=== PATIENT | female | born 1960 | race Caucasian/White ===

== ENCOUNTER 2018-11-19 16:28 | Inpatient (IN) ==
[2018-11-19] MEDS ORDERED: NS 1,000 ML IV ONE ×3 (17:06→22:03)
[2018-11-19 17:28] LABS: BASO# 0.05 X1000 (0.0-0.2); BASO% 0.5 % (0.0-0.8); EOS# 0.06 X1000 (0.0-0.7); EOS% 0.5 % (0.0-10.0); HEMATOCRIT 30.5 % (37.0-47.0); HEMOGLOBIN 9.8 g/dL (12.0-16.0); IMM GRAN# 0.02 X1000 (0.0-0.04); IMM GRAN% 0.2 % (0.0-0.5); LYMPH# 1.89 X1000 (1.2-3.4); LYMPH% 17.3 % (20.5-51.1); MCH 29.3 PG (27-31); MCHC 32.1 g/dL (33-37); MCV 91.3 FL (81-99); MONO% 14.6 % (1.7-9.3); MPV 10.7 FL (7.4-10.4); NEUT# 7.31 X1000 (1.4-6.5); NEUT% 66.9 % (42.2-75.2); PLT 160 X1000 (130-400); RBC 3.34 XMIL (4.2-5.4); RDW 18.7 % (11.5-14.5); WBC 10.93 X1000 (4.8-10.8)
[2018-11-19 17:44] LABS: INR 1.41
[2018-11-19 17:45] LABS: PTT 49.9 Seconds (22.3-41.8)
[2018-11-19 17:59] LABS: BE 0.4 mmoll (-3.0-3.0); BLOOD TYPE ARTERIAL; HCO3-(ACT) 25.3 mmoll (20.0-26.0); METHB 0.8 % (0.0-1.5); O2(CT) 9.8 mL/dL (15.0-23.0); O2HB 95.7 % (95.0-99.0); PCO2(98.6) 36 mmHg (35-45); PO2(98.6) 78 mmHg (60-100); SAMPLE BLOOD; SAO2 98.9 % (95.0-100.0); THB 7.2 g/dL (11.5-17.4); pH(98.6) 7.44 (7.35-7.45)
[2018-11-19 18:02] LABS: ALBUMIN 2.6 g/dL (3.5-5.0); CALCIUM 10.9 mg/dL (8.8-10.2); CREATININE 4.2 mg/dL (0.5-0.9); POTASSIUM 3.6 mmol/L (3.5-5.1); TOTAL BILIRUBIN 1.6 mg/dL (0.20-1.00); TOTAL PROTEIN 7.4 g/dL (6.3-8.3)
[2018-11-19 18:03] LABS: ALLEN TEST YES; MODALITY ROOM AIR
[2018-11-19 18:14] LABS: URINE SOURCE CLEAN CATCH
--- NOTE | 2018-11-19 18:17 | ED EKG INTERP ---
This chart was entered by Judy Guzmán Scribe, acting as scribe for Galilea Gonsales MD. EKG Interpretation - EKG Time of EKG reading by physician:: 17:20 EKG Read and Signed by:: Galilea Gonsales EKG Interpretation (*Must complete 3 of following elements*): Abnormal (cannot rule out anteroir infarct-age undetermined) Rate: 99 Rhythm: nsr [place]: normal QRS: normal [place] Interval: normal ST Wave: normal Attestation - Physician/ BOBBY Attestation The physician spent face to face time with patient:: Yes Advanced Practice Provider documentation review:: Supervising physician onsite and consulted in the evaluation and care of this patient. The physician did have a face to face encounter with the patient. This chart was documented by the indicated scribe, (Judy Guzmán, Umair) and accurately reflects the services I performed and decisions made by me, Galilea Gonsales MD, as attested by the provider's signature.
--- NOTE | 2018-11-19 18:24 | PROVIDER DOCUMENTATION ---
This chart was entered by Carmina Tinajero Scribe, acting as scribe for Galilea Gonsales MD. HPI-General Adult - General Chief Complaint: Altered Mental Status Stated Complaint: FEMALE /DISORIENTED Time Seen by Provider: 11/19/18 16:52 Source: patient, EMS Unable to obtain history due to:: altered Allergies/Adverse Reactions: Patient Allergies Allergy/AdvReac Type Severity Reaction Status Date / Time No Known Allergies Allergy Verified 11/19/18 16:42 Home Medications: Home Medication List Medication Instructions Recorded Confirmed Last Taken Type Unobtainable [Home Meds 11/19/18 11/19/18 Unknown History Unobtainable] - History of Present Illness -Gen Adult Nature of Presenting Problems: 58 yof presents to the ed with disoriented and non compliant with medications for newly dx of dm. pt has A1C 8.6 and for 2 days has been confused with increased thirst and urination. pt has not had diarrhea. pt has family at bedside. had a brain ct done 1 week ago at [facility] with negative findings. Location of Pain/Injury: reports: none Pain Radiation: reports: no radiation Quality of Pain: reports: none Severity: reports: moderate (ams) Onset/Duration: reports: 2 days ago Timing: reports: still present Context/Activities at Onset: reports: light activity Modifying Factors: improves with: nothing Associated Symptoms: reports: genitourinary problems (increased urination), other (increased thirst). denies: back/neck pain, chest pain, diarrhea, dizziness, fever/chills, nausea, shortness of breath, syncope, vomiting, weakness Similar Symptoms Previously?: No Recently seen or treated by another doctor?: No - Diabetes Related Context Context: reports: high blood sugar Review of Systems - Adult - REVIEW OF SYSTEMS - ADULT ROS:: ROS per family Constitutional: denies: chills, fever Eyes: reports: no symptoms reported Ears, Nose, Mouth & Throat: reports: no symptoms reported Cardiovascular: denies: chest pain, palpitations Respiratory: denies: cough, shortness of breath, wheezing Gastrointestinal: denies: abdominal pain, diarrhea, nausea, vomiting Genitourinary: reports: see HPI, frequency, urgency Musculoskeletal: reports: no symptoms reported Integumentary: reports: no symptoms reported Neurological: reports: see HPI, other (confused). denies: dizziness/vertigo, headache/migraines, seizure, slurred speech Psychiatric: reports: no symptoms reported Endocrine: reports: increased thirst, polyuria Hematologic/Lymphatic: reports: no symptoms reported Allergic/Immunologic: reports: no symptoms reported All Other Systems: Reviewed and Negative Past History - Adult - PAST MEDICAL HISTORY-ADULT Review of Records: reports: Old Records Reviewed, Nursing Assessment Review, Medications Reviewed, Social history reviewed & non-contributory. Major Childhood Illnesses: reports: denies history Cardiovascular: reports: denies history Respiratory: reports: denies history Gastrointestinal: reports: denies history Obstetrical/Gynecological: reports: denies history Genitourinary: reports: denies history Musculoskeletal: reports: denies history Hand Dominance: Right Handed Neurological: reports: denies history Psychiatric: reports: denies history Endocrine/Immune: reports: Diabetes Diabetes Type: Type 2 Other Conditions: reports: other cancer (nonhodgkins lymphoma) - PRIOR SURGERIES/PROCEDURES Surgical/Procedure History: reports: breast - IMMUNIZATION STATUS Childhood Immunizations: See Nurse Assessment Flu Vaccine: See Nurse Assessment - FAMILY HISTORY Family History: reviewed, not pertinent - SOCIAL HISTORY Smoking: denies Substance Use: denies Living Situation: family Physical Exam-General - PHYSICAL EXAM-ADULT Exam Limited by: pt has ams - CONSTITUTIONAL General Appearance: alert, no apparent distress, obese - EYES Eyes: PERRL/EOMI, pink conjunctivae - HEAD, EARS, NOSE, MOUTH & THROAT HENMT: normal ENT inspection (dry oral mucous membranes) - NECK Neck: full range of motion, normal inspection - RESPIRATORY Respiratory: chest non-tender, lungs clear, normal breath sounds - CARDIOVASCULAR Cardiovascular: normal peripheral pulses, tachycardia (105) - GASTROINTESTINAL (ABDOMEN) Abdominal Exam: normal bowel sounds, non tender, soft - MUSCULOSKELETAL Back Exam: normal inspection, no CVA tenderness Extremity: normal range of motion, non-tender, normal inspection Peripheral Pulses: radial (R): 2+, radial (L): 2+, dorsalis-pedis (R): 2+, dorsalis-pedis (L): 2+ - SKIN Integumentary: normal color, normal turgor, warm/dry - NEUROLOGIC Neurologic: grossly normal, no motor/sensory deficits - PSYCHIATRIC Psych/Mental Status: other (alert oriented. able to give pieces of history, but mostly from her mother.) Progress - PLAN OF CARE/RESULTS Progress/Plan/Lab Results: Vital Signs - 8 hr 11/19/18 16:31 Temperature 98 F Pulse Rate 105 H Respiratory Rate 18 Blood Pressure 130/68 O2 Sat by Pulse Oximetry 98 Orders Category Date Time Status Cardiac Monitoring DIRECTED Care 11/19/18 16:52 Active Finger Stick Blood Sugar (ED) DIRECTED Care 11/19/18 16:52 Active Oxygen Therapy- ED Nursing DIRECTED Care 11/19/18 16:52 Active Saline Loc NOW Care 11/19/18 16:52 Active CHEST-PORTABLE [RAD] Stat Exams 11/19/18 16:52 Ordered ABG [RESP] Routine Lab 11/19/18 16:52 Ordered CBC WITH ELECTRONIC DIFF [HEME] Stat Lab 11/19/18 17:13 Received CK PROFILE [SP CHEM] Stat Lab 11/19/18 17:13 Received COMPREHENSIVE METABOLIC PANEL [CHEM] Stat Lab 11/19/18 17:13 Received LACTATE, PLASMA [CHEM] Stat Lab 11/19/18 16:52 Uncollected PROTIME WITH INR [COAG] Stat Lab 11/19/18 17:13 Received PTT [COAG] Stat Lab 11/19/18 17:13 Received TROPONIN T Stat Lab 11/19/18 17:13 Received URINALYSIS [URINALYSIS] Stat Lab 11/19/18 16:53 Uncollected 0.9% Sodium Chloride Inj [Ns] 1,000 ml Med 11/19/18 17:06 Active IV 999 mls/hr Altered Mental Status Stat Oth 11/19/18 16:52 Ordered EKG [EKG] Stat Ther 11/19/18 16:52 Ordered Result Diagrams: 11/19/18 17:13 11/19/18 17:13 - CONSULTS/PCP/HOSPITALIST Notification #1 *Consult/PCP/Hospitalist*: Dr. Tapia Time Discussed: 18:23 (Acute renal failure, diabetes) Consult Disposition: Admit Departure - Departure Date of Disposition Decision: 11/19/18 Time of Disposition Decision: 18:23 DIAGNOSIS: Acute renal failure, Diabetes Disposition: ADMITTED INPATIENT 09 Certified Medical Emergency: Emergent Condition: Stable Referrals and Follow-Ups: None,PCP [Primary Care Provider] - - Critical Care Note This patient required my direct & personal management of CC.: No Attestation - Physician/ BOBBY Attestation Patient care was provided by Advanced Practice Provider:: No The physician spent face to face time with patient:: Yes Advanced Practice Provider documentation review:: Supervising physician onsite and consulted in the evaluation and care of this patient. The physician did have a face to face encounter with the patient. This chart was documented by the indicated scribe, (Carmina Tinajero Scribe) and accurately reflects the services I performed and decisions made by me, Galilea Gonsales MD, as attested by the provider's signature.
[2018-11-19 18:33] LABS: BILIRUBIN URINE NEGATIVE (NEGATIVE); BLOOD URINE 1+ (NEGATIVE); CLARITY VERY CLOUDY (CLEAR); COLOR YELLOW; GLUCOSE URINE NEGATIVE (NEGATIVE); KETONE URINE TRACE mg/dL (NEGATIVE); LEUKOCYTES URINE 1+ (NEGATIVE); NITRITE URINE NEGATIVE (NEGATIVE); PROTEIN URINE TRACE mg/dL (NEGATIVE); SP GRAVITY URINE 1.015; UROBILINOGEN URINE NORMAL
[2018-11-19 18:34] LABS: URINE BACTERIA 1+ /HFP; URINE CAST WHITE CELL PRESENT /LPF; URINE EPITHELIAL CELLS <10 /HPF (<10); URINE RBC <10 /HPF (<10); URINE WBC 20-40 /HPF (<10); URINE YEAST NONE SEEN /HPF
[2018-11-19 18:35] LABS: URINE CRYSTAL NONE SEEN /HPF
--- NOTE | 2018-11-19 19:22 | Diag Imaging Result Doc PS360 ---
EXAM: CHEST-PORTABLE HISTORY: ams TECHNIQUE: Portable chest, single view COMPARISON: None. Findings: Poor inspiratory effort. No cardiomegaly. There is a small left pleural effusion with basilar atelectasis and/or infiltrate. There is a right sided portacatheter. No pneumothorax. IMPRESSION: Small left pleural effusion with basilar atelectasis and/or an infiltrate. Electronically signed by Tony Mederos 11/19/2018 7:19 PM
[2018-11-19 19:39] LABS: UR CREAT RANDOM 217.3 mg/dL (11-20)
[2018-11-19] MEDS ORDERED: ZOFRAN IV PRN (22:03)
[2018-11-19] MEDS ORDERED: TYLENOL PO PRN (22:03)
[2018-11-19] MEDS: SODIUM CHLORIDE 0.9% INJ SCH (23:00)
[2018-11-19] MEDS: PROTONIX IV SCH (23:00)
[2018-11-19] MEDS: MAXIPIME 1 GM in NS 50 ML IV SCH (23:05)
[2018-11-20 07:16] LABS: HEMOGLOBIN A1C 5.5 % (4.8-6.0)
[2018-11-20 07:22] LABS: BASO# 0.05 X1000 (0.0-0.2); BASO% 0.4 % (0.0-0.8); EOS% 0.9 % (0.0-10.0); HEMATOCRIT 29.8 % (37.0-47.0); HEMOGLOBIN 9.3 g/dL (12.0-16.0); IMM GRAN# 0.02 X1000 (0.0-0.04); IMM GRAN% 0.2 % (0.0-0.5); LYMPH# 3.03 X1000 (1.2-3.4); LYMPH% 27.2 % (20.5-51.1); MCH 28.8 PG (27-31); MCHC 31.2 g/dL (33-37); MCV 92.3 FL (81-99); MONO# 1.95 X1000 (0.11-0.59); MONO% 17.5 % (1.7-9.3); MPV 11.2 FL (7.4-10.4); NEUT# 5.98 X1000 (1.4-6.5); NEUT% 53.8 % (42.2-75.2); PLT 144 X1000 (130-400); RBC 3.23 XMIL (4.2-5.4); RDW 18.7 % (11.5-14.5); WBC 11.13 X1000 (4.8-10.8)
--- NOTE | 2018-11-20 07:31 | HISTORY AND PHYSICAL ---
HISTORY OF PRESENT ILLNESS: The patient is a very pleasant patient who came in for altered mentation. It is very difficult to get much information on her. She is very confused and disoriented. She is 58. I get a sense she gets her care mostly from the [facility], and she really cannot give me much detailed information. She reports being on Lasix, but she has no idea how much or how often. She has been having increased confusion. She is not very compliant with her diabetic medicines. This is per the record. Her A1c is 8.6. Now, apparently the diabetes is a relatively new diagnosis reportedly. Her sugars really are not that badly controlled. She has got renal failure and we have no baseline to compare to, nothing of the sort. So, in any case, she was admitted for further treatment. Workup in the ER was mostly consistent with acute renal failure. She denies nausea and vomiting. She denies diarrhea. She denies abdominal pain. She does state she has had some bleeding from her hemorrhoids, which has been protracted, but unclear otherwise etiology. We do not have a list of any of her medications. Nothing has been confirmed. The patient admitted for acute renal failure essentially. PAST MEDICAL HISTORY: 1. Type 2 diabetes, sounds like she is not insulin dependent. 2. Reported CHF, but no CAD. 3. Chronic renal failure, but unknown type. PAST SURGICAL HISTORY: She denies. FAMILY HISTORY: Denies any renal or cardiac history. Mother is her main caregiver. SOCIAL HISTORY: No tobacco, no ethanol. ALLERGIES: No known drug allergies. REVIEW OF SYSTEMS: Otherwise, negative times a 10-point review of systems. PHYSICAL EXAMINATION: VITAL SIGNS: Blood pressure is currently on the normal side. Curiously, she has a port. GENERAL: A well-developed female in no acute distress. HEAD: Head exam was normocephalic, atraumatic. EYES: Pupils equal, round, reactive to light. Extraocular moves were intact. EARS, NOSE AND THROAT: She had moist mucous membranes. NECK: Supple. CARDIOVASCULAR: Regular rate and rhythm. No murmurs, gallops or rubs. PULMONARY: Bilateral breath sounds. Clear to auscultation. GASTROINTESTINAL: Soft, nontender, nondistended. Bowel sounds are positive. EXTREMITIES: No clubbing or cyanosis. LYMPHATIC: No peripheral edema. NEUROLOGIC: Cranial nerves 2-12 were nonfocal, but she is really not oriented to time or place. LABORATORY DATA: BUN and creatinine of 67 and 4.2. AST and ALT of 137 and 48. Hemoglobin and hematocrit 9 and 30, platelets 160,000. Urine showed 20 to 40 white blood cells. Creatinine of 217. PROBLEM LIST: This is a 58-year-old female presenting with encephalopathy and acute kidney injury. 1. Acute kidney injury, likely related to dehydration. No medication or patient derived issue. We will check urine electrolytes. Continue IV fluids and follow. Be careful, with a volume status she reports a history of heart failure, but at this point is really nothing there. She has gotten 2 L and will continue fluids for the time being. 2. Encephalopathy, which is likely multifactorial. She has a nonfocal exam. Reportedly, her recent CT scan which was negative, but we will repeat that just to make sure that nothing has progressed, although I think this is all related to azotemia amongst other things. 3. Left lower lobe pneumonia. We will continue empiric antibiotics. She also may have a UTI, so we will treat that. I am going to give her cefepime since cannot tell if she has been recently in the hospital, but at least she has been exposed to the hospital. 4. Diabetes. We will monitor her blood sugars continue sliding scale, check an A1c and follow. DISPOSITION: Pending her clinical status. At this point, clinically she seems dry. I am not sure what her cardiac function is. We are going to try to get old records and follow closely. I will try to get an echocardiogram and we will follow closely. This is a service admission. cc: Juan Diego Tapia MD
[2018-11-20 07:57] LABS: ALBUMIN 2.3 g/dL (3.5-5.0); CALCIUM 10.7 mg/dL (8.8-10.2); CREATININE 3.4 mg/dL (0.5-0.9); POTASSIUM 3.7 mmol/L (3.5-5.1); TOTAL BILIRUBIN 1.5 mg/dL (0.20-1.00); TOTAL PROTEIN 7.1 g/dL (6.3-8.3)
--- NOTE | 2018-11-20 08:04 | EKG Report ---
Test Performed on : 11/19/2018 5:19:16 PM Test Reason : ams Blood Pressure : / mmHG Vent. Rate : 099 BPM Atrial Rate : 099 BPM P-R Int : 166 ms QRS Dur : 102 ms QT Int : 352 ms P-R-T Axes : 040 002 027 degrees QTc Int : 451 ms Normal sinus rhythm. Cannot rule out Anterior infarct , age undetermined Abnormal ECG No previous ECGs available Unconfirmed Result
--- NOTE | 2018-11-20 08:22 | Diag Imaging Result Doc PS360 ---
EXAM: US ABDOMEN-COMPLETE HISTORY: primo/hepatic injury TECHNIQUE: Abdominal ultrasound COMPARISON: None. FINDINGS: Normal inferior vena cava. No abdominal aortic aneurysm. Normal pancreatic head. The majority of the body and tail are obscured. There is a small amount of fluid about the liver. The liver is enlarged measuring 25.8 cm in length. There is fatty infiltration of the liver. The gallbladder is not present. The common bile duct measures 7 mm. Normal right kidney. No hydronephrosis. The spleen measures 13.7 cm in length. Normal left kidney. No hydronephrosis. IMPRESSION: 1.Hepatomegaly with fatty infiltration 2.Mild splenomegaly 3.Cholecystectomy 4.Small amount of fluid about the liver Electronically signed by Tony Mederos 11/20/2018 8:20 AM
--- NOTE | 2018-11-20 08:48 | Diag Imaging Result Doc PS360 ---
EXAM: CT HEAD W/O CONTRAST HISTORY: encephalopathy TECHNIQUE: CT head without contrast. COMPARISON: None. FINDINGS: No parenchymal hemorrhage. No epidural or subdural hematoma. No subarachnoid hemorrhage. No mass identified on this noncontrasted exam. No hydrocephalus. No sinus opacification. IMPRESSION: No hemorrhage. Negative brain CT without contrast. This exam was performed using automated exposure control, adjustment of mA or kV according to patient size, and/or use of iterative reconstruction technique. Electronically signed by Tony Mederos 11/20/2018 8:46 AM
[2018-11-20] MEDS: MAXIPIME 1 GM in NS 50 ML IV SCH ×2 (09:15→22:55)
[2018-11-20] MEDS ORDERED: NS 1,000 ML IV SCH (18:45)
--- NOTE | 2018-11-20 19:47 | PROGRESS NOTE ---
DATE: 11/20/2018 SUBJECTIVE: She seems better today, like not as confused. She still maybe not completely understanding what is going on, but overall she seems improved. OBJECTIVE: Vital Signs: Blood pressure is 137/70, heart rate of 109, respiratory rate of 20, temperature 97.5. Cardiovascular: Regular rate and rhythm. Pulmonary: Bilateral breath sounds. Clear to auscultation. Gastrointestinal: Soft, nontender, nondistended. Bowel sounds are positive. Extremities: No clubbing or cyanosis. Lymphatic: No peripheral edema. Neurologic: Nonfocal. LABORATORY DATA: Her creatinine is down to 3.4. Her T bilirubin is 1.5. AST and ALT are really unchanged. PROBLEM LIST: 1. Acute kidney injury with an unclear etiology. Her family reports she has recently been started on Lasix, which she states for incontinence. Her family states, which I do not think that is consistent, but she has recently been placed on a diuretic. We need to get her updated medications. So, in any case, we will continue IV fluids. Her renal function is improved. I think we need to continue hydration. 2. Possible pneumonia. She is on antibiotics and pulmonary toilet. We will continue to follow closely. 3. Elevated liver enzymes likely related to steatohepatitis. We will continue to monitor closely. Unclear what the etiology is, but she is getting a workup for that at this point. 4. New onset diabetes. We will continue sliding scale and follow. Her blood sugars have been okay. She has recently been on metformin, but we have not been able to, obviously that is not a good choice for her now. Curiously, I mean, she has been diagnosed with diabetes, but her A1c is only 5.5, so I do not think I would continue metformin or any medications at this point. I think we will just follow her blood sugars and monitor her. DISPOSITION: Pending clinical status. We will continue to follow closely. cc: Juan Diego Tapia MD
[2018-11-20] MEDS: PROTONIX IV SCH (22:55)
[2018-11-20] MEDS: SODIUM CHLORIDE 0.9% INJ SCH (22:55)
[2018-11-20] MEDS: NS 1,000 ML IV SCH (22:56)
[2018-11-20] MEDS ORDERED: CALMOSEPTINE OINTMENT TOP PRN (23:08)
[2018-11-21 02:47] LABS: UR PROT RANDOM 44.4 mg/dL
[2018-11-21 07:13] LABS: BASO# 0.05 X1000 (0.0-0.2); BASO% 0.5 % (0.0-0.8); EOS# 0.25 X1000 (0.0-0.7); EOS% 2.3 % (0.0-10.0); HEMATOCRIT 27.7 % (37.0-47.0); HEMOGLOBIN 8.6 g/dL (12.0-16.0); IMM GRAN# 0.02 X1000 (0.0-0.04); IMM GRAN% 0.2 % (0.0-0.5); LYMPH# 2.83 X1000 (1.2-3.4); LYMPH% 25.7 % (20.5-51.1); MCH 28.6 PG (27-31); MONO# 2.28 X1000 (0.11-0.59); MONO% 20.7 % (1.7-9.3); MPV 10.8 FL (7.4-10.4); NEUT# 5.59 X1000 (1.4-6.5); NEUT% 50.6 % (42.2-75.2); PLT 149 X1000 (130-400); RBC 3.01 XMIL (4.2-5.4); RDW 18.4 % (11.5-14.5); WBC 11.02 X1000 (4.8-10.8)
[2018-11-21 07:40] LABS: ALBUMIN 2.4 g/dL (3.5-5.0); DIRECT BILIRUBIN 0.8 mg/dL (0.00-0.20); TOTAL BILIRUBIN 1.6 mg/dL (0.20-1.00); TOTAL PROTEIN 6.8 g/dL (6.3-8.3)
[2018-11-21 07:47] LABS: ALBUMIN 2.3 g/dL (3.5-5.0); CALCIUM 11.1 mg/dL (8.8-10.2); CREATININE 2.7 mg/dL (0.5-0.9); PHOSPHORUS 3.5 mg/dL (2.7-4.5); POTASSIUM 3.1 mmol/L (3.5-5.1)
[2018-11-21] MEDS: MAXIPIME 1 GM in NS 50 ML IV SCH ×2 (09:53→21:43)
[2018-11-21 10:25] LABS: BASO 1 % (0-1); EOS 1 % (1-10); LYMPHS 23 % (21-51); MONO 16 % (1-9); SEGS 59 % (42-75)
[2018-11-21 11:27] LABS: FERRITIN 683 ng/mL (13-150)
[2018-11-21] MEDS ORDERED: KLOR-CON PO ONE (11:53)
[2018-11-21 12:37] LABS: HEPATITIS PROFILE ACUTE SEE COMMENTS
[2018-11-21] MEDS ORDERED: HALDOL IV PRN (17:13)
--- NOTE | 2018-11-21 18:04 | PROGRESS NOTE ---
DATE: 11/21/2018 SUBJECTIVE: She is doing okay. Still confused per the nursing staff. OBJECTIVE: Vital signs: Blood pressure 148/67, heart rate of 98, respiratory rate 20, temperature 98.1 degrees, 100% on room air. Cardiovascular: Irregular rate and rhythm. Pulmonary: Bilateral breath sounds clear to auscultation. Gastrointestinal: Soft, nontender, nondistended. Bowel sounds are positive. LABORATORY DATA: White count 11, hemoglobin 8, hematocrit 27, platelets 149,000. Potassium 3.1, creatinine down to 2.7, calcium is up at 11.1. Ferritin 683. All iron studies and all those tests are normal. B12 and folate are normal. PROBLEM LIST: 1. Acute kidney injury related to acute tubular necrosis (ATN), dehydration, and Lasix. Her creatinine per old records was normal 0.7 in September 2018 so this is an acute issue. 2. Pneumonia. She is on cefepime. We will continue pulmonary toilet. 3. Acute hepatitis without a clear etiology. Her hepatitis panel is negative. Numbers are still present. 4. Hypokalemia. We will supplement and follow closely. Check magnesium levels. 5. Reported new onset diabetes. Her blood sugars have all been stable. Her fasting this morning was 129, but yesterday it was 114, and a random was 152. Her A1c is only 5.5. At this point, I am not going to give her any diabetes medications for fear of causing hypoglycemia. We will continue to follow. cc: Juan Diego Tapia MD
[2018-11-21] MEDS: PROTONIX IV SCH (21:43)
[2018-11-21] MEDS: SODIUM CHLORIDE 0.9% INJ SCH (21:43)
--- NOTE | 2018-11-21 22:06 | ECHO REPORT ---
ORDER DATE: 11/21/2018 MEASUREMENTS: Left ventricular end-diastolic diameter 4.7, end-systolic diameter 2.5. Septal thickness 1.3, posterior wall thickness 1.0. Left atrium 3.4. Aortic root 3.5. SUMMARY: 1. Technically difficult study due to limited acoustic window quality. Intravenous echocontrast agent Definity was utilized to enhance endocardial definition. 2. The aortic valve is trileaflet and opens normally on 2-dimensional images. Peak gradient across the aortic valve was approximately 15 mmHg. Mitral and tricuspid valves are without evidence of structural abnormality, while pulmonic valve is not well demonstrated. The aortic root is normal in size. 3. Normal left ventricular dimensions demonstrated. Estimated left ventricular ejection fraction appears to be at least 70%. No regional wall motion abnormalities are evident. Doppler suggests grade 1 left ventricular diastolic dysfunction. The left atrium, right atrium and right ventricle are normal size with grossly preserved right ventricular systolic function. 4. No pericardial effusion. 5. Appearance of inferior vena cava suggests normal central venous pressure. cc: MD Juan Diego Hopper MD
[2018-11-21] MEDS: NS 1,000 ML IV SCH ×3 (23:31→23:32)
[2018-11-22] MEDS: NS 1,000 ML IV SCH ×3 (01:33→21:46)
[2018-11-22 08:34] LABS: BASO# 0.07 X1000 (0.0-0.2); BASO% 0.7 % (0.0-0.8); EOS% 2.8 % (0.0-10.0); HEMATOCRIT 30.8 % (37.0-47.0); HEMOGLOBIN 9.4 g/dL (12.0-16.0); IMM GRAN# 0.01 X1000 (0.0-0.04); IMM GRAN% 0.1 % (0.0-0.5); LYMPH# 2.69 X1000 (1.2-3.4); LYMPH% 25.2 % (20.5-51.1); MCH 28.8 PG (27-31); MCHC 30.5 g/dL (33-37); MCV 94.5 FL (81-99); MONO# 1.77 X1000 (0.11-0.59); MONO% 16.6 % (1.7-9.3); MPV 10.9 FL (7.4-10.4); NEUT# 5.83 X1000 (1.4-6.5); NEUT% 54.6 % (42.2-75.2); PLT 129 X1000 (130-400); RBC 3.26 XMIL (4.2-5.4); RDW 18.8 % (11.5-14.5); WBC 10.67 X1000 (4.8-10.8)
[2018-11-22 08:56] LABS: ALBUMIN 2.4 g/dL (3.5-5.0); CALCIUM 10.7 mg/dL (8.8-10.2); CREATININE 2.2 mg/dL (0.5-0.9); PHOSPHORUS 2.9 mg/dL (2.7-4.5); POTASSIUM 3.4 mmol/L (3.5-5.1)
[2018-11-22] MEDS: MAXIPIME 1 GM in NS 50 ML IV SCH ×2 (10:32→21:46)
[2018-11-22] MEDS ORDERED: XOPENEX NEB ONE (17:16)
[2018-11-22] MEDS: XOPENEX NEB INH SCH ×2 (17:19→19:37)
--- NOTE | 2018-11-22 17:59 | PROGRESS NOTE ---
DATE: 11/22/2018 SUBJECTIVE: Patient is sitting up in bed. She looks awake, alert, not as lethargic. She still seems confused though, although she is stating that she is not getting her regular medications. We discussed that we have to hold her diabetic medicines because her kidney function is not there. We still have not resolved any of her home meds. OBJECTIVE: Blood pressure 131/66, heart rate of 109, respiratory rate 18, temperature 98, 99% on room air. Cardiovascular: Regular rate and rhythm. Pulmonary: Bilateral breath sounds clear to auscultation. GI: Soft, nontender, nondistended. Bowel sounds were positive. LABORATORY DATA: White count is 10, hemoglobin and hematocrit 9 and 30, platelets 129. Potassium 3.4, BUN and creatinine are down to 33 and 2.2, calcium is 10.7. B12 and folate are normal. Iron studies are normal. PROBLEM LIST: 1. Acute kidney injury, likely related to diuretic. We will continue to follow. 2. Pneumonia. She is on cefepime. It is day four of that. She is not on any breathing treatments. Will probably put her on a little bit of Xopenex. 3. Diabetes. I am not entirely sure she has full diagnosis of that, but we are going to see how she does. Her A1c is only 5.5 and none of her sugars have been above 200. We are just keeping an eye on them at this point and we will follow. DISPOSITION: I think she will be able to go home soon once her kidney function has improved. cc: Juan Diego Tapia MD
[2018-11-22] MEDS: PROTONIX IV SCH (21:46)
[2018-11-23] MEDS: NS 1,000 ML IV SCH ×3 (05:42→22:01)
[2018-11-23 07:16] LABS: BASO# 0.07 X1000 (0.0-0.2); BASO% 0.6 % (0.0-0.8); EOS# 0.23 X1000 (0.0-0.7); EOS% 2.1 % (0.0-10.0); HEMATOCRIT 27.4 % (37.0-47.0); HEMOGLOBIN 8.3 g/dL (12.0-16.0); IMM GRAN# 0.02 X1000 (0.0-0.04); IMM GRAN% 0.2 % (0.0-0.5); LYMPH# 2.89 X1000 (1.2-3.4); MCH 29.1 PG (27-31); MCHC 30.3 g/dL (33-37); MCV 96.1 FL (81-99); MONO# 2.01 X1000 (0.11-0.59); MONO% 18.1 % (1.7-9.3); MPV 10.6 FL (7.4-10.4); PLT 115 X1000 (130-400); RBC 2.85 XMIL (4.2-5.4); RDW 18.7 % (11.5-14.5); WBC 11.12 X1000 (4.8-10.8)
[2018-11-23 07:43] LABS: ALBUMIN 2.1 g/dL (3.5-5.0); CALCIUM 10.6 mg/dL (8.8-10.2); CREATININE 1.9 mg/dL (0.5-0.9); PHOSPHORUS 2.6 mg/dL (2.7-4.5); POTASSIUM 3.2 mmol/L (3.5-5.1)
[2018-11-23] MEDS: MAXIPIME 1 GM in NS 50 ML IV SCH (10:18)
[2018-11-23] MEDS ORDERED: KLOR-CON PO ONE (12:18)
[2018-11-23] MEDS: XOPENEX NEB INH SCH ×3 (12:56→21:09)
[2018-11-23] MEDS ORDERED: LEVAQUIN PO SCH (19:30)
--- NOTE | 2018-11-23 19:50 | PROGRESS NOTE ---
DATE: 11/23/2018 SUBJECTIVE: Patient has no major complaints. OBJECTIVE: Blood pressure 83/69, heart rate of 112, respiratory rate of 18.Cardiovascular: Regular rate and rhythm. Pulmonary: Bilateral breath sounds clear to auscultation. GI: Soft, nontender, nondistended. Bowel sounds are positive. LABORATORY DATA: White count is 11, hemoglobin and hematocrit 8 and 27, platelets of 115,000 which has been a steady drop, potassium is 3.2, creatinine is 1.9 which is also overall improved. Phosphorus is 2.6. PROBLEM LIST: 1. Acute kidney injury. She seems to be doing better on fluids slowly but surely. She has not had any kidney issues, she has been on some intense diuretics but that seems overall improved. 2. Thrombocytopenia. I do not have a ready explanation for this. She is on cefepime so I am going to hold that. I think we have been giving that to her for pneumonia which I think she had that on x-ray on admission so will repeat her studies and I am going to switch her to Levaquin p.o. and continue to follow. 3. Altered mentation. I am not sure if some of this may not be related to kind of some baseline issues, not dementia per se but maybe even something primarily psychiatric but she seems alert, oriented x3. We will continue to follow closely. I am thinking she will probably go home soon but I am waiting on treatment options but will see how things go. cc: Juan Diego Tapia MD
[2018-11-23] MEDS: SODIUM CHLORIDE 0.9% INJ SCH (21:57)
[2018-11-23] MEDS: PROTONIX IV SCH (21:57)
[2018-11-24 05:57] LABS: BASO# 0.05 X1000 (0.0-0.2); BASO% 0.4 % (0.0-0.8); EOS# 0.13 X1000 (0.0-0.7); EOS% 1.1 % (0.0-10.0); HEMATOCRIT 26.8 % (37.0-47.0); HEMOGLOBIN 8.2 g/dL (12.0-16.0); IMM GRAN# 0.03 X1000 (0.0-0.04); IMM GRAN% 0.3 % (0.0-0.5); LYMPH# 2.56 X1000 (1.2-3.4); LYMPH% 21.6 % (20.5-51.1); MCH 29.1 PG (27-31); MCHC 30.6 g/dL (33-37); MONO# 2.28 X1000 (0.11-0.59); MONO% 19.3 % (1.7-9.3); MPV 10.9 FL (7.4-10.4); NEUT# 6.78 X1000 (1.4-6.5); NEUT% 57.3 % (42.2-75.2); PLT 119 X1000 (130-400); RBC 2.82 XMIL (4.2-5.4); RDW 18.7 % (11.5-14.5); WBC 11.83 X1000 (4.8-10.8)
[2018-11-24] MEDS: NS 1,000 ML IV SCH ×2 (06:04→22:02)
[2018-11-24 06:13] LABS: CREATININE 1.5 mg/dL (0.5-0.9); POTASSIUM 3.2 mmol/L (3.5-5.1)
--- NOTE | 2018-11-24 07:38 | Diag Imaging Result Doc PS360 ---
EXAM: CHEST-2 VIEWS INDICATION: hypoxia TECHNIQUE: 2 views COMPARISON: 11/19/2018 FINDINGS: The right chest port is in stable position. There has been improvement in the left pleural effusion and adjacent atelectasis and/or infiltrate. No new consolidation is identified. Cardiac silhouette is stable. IMPRESSION: Interval improvement. Electronically signed by Eric Holland 11/24/2018 7:36 AM
[2018-11-24] MEDS ORDERED: POTASSIUM PHOSPHATE 40 MEQ in NS 250 ML IV ONE (08:00)
[2018-11-24] MEDS: XOPENEX NEB INH SCH ×3 (08:11→21:20)
--- NOTE | 2018-11-24 15:50 | PROGRESS NOTE ---
DATE: 11/24/2018 SUBJECTIVE: Patient has no focal complaints. OBJECTIVE: Vital signs: Blood pressure 140/108, heart rate 113, respiratory rate 18, temperature 98.1 degrees, 100% on room air. Cardiovascular: Regular rate and rhythm. Pulmonary: Bilateral breath sounds clear to auscultation. Gastrointestinal: Soft, nontender, nondistended. Bowel sounds were positive. LABORATORY DATA: White count 11, hemoglobin 8, hematocrit 26, platelets 119, 000. Potassium 3.2, creatinine 1.5, calcium is 11, and she does have a low phosphorus which would suggest possibly hyperparathyroidism. PROBLEM LIST: 1. Acute kidney injury. She is doing better. She is on normal saline. We will continue treatment. Her renal failure is improving. 2. Hypercalcemia. I do not have a clear reason for that. I am not sure if it is related to medications. We will get a PTH level and follow. 3. Acute kidney injury. We will continue IV fluids and follow hold diuretics. 4. Thrombocytopenia. That has stabilized. 5. Hypercalcemia. We will continue to follow. Check PTH level, SPEP, UPEP. We will check an ionized calcium, too. We may have to give her bisphosphonates, pending her clinical status. 6. Pneumonia. I think she is doing better. I am going to switch her off the Levaquin, just because I am not sure if that is contributing to her altered mental status which is her final issue. 7. Altered mental status. She is still encephalopathic. She is still not oriented. She states it is 1834. She does know who the president is, but she cannot give me systematically where she is (hospital), almost like an anterior grade amnesia. Difficult to say what her baseline is. I have not seen family recently, but it is certainly possible this may be some underlying psychiatric concern, but we will pursue MRI and neurological workup. Withdrawal is a possibility. I still not have gotten any medications on her. We need to try to see what medicines she is on. I know she is on metformin. I know she was on Lasix, just by questioning the family, but we do not know what other medications she is on, but she is not stable to be on her own at this point. I think she is at risk for other issues. I think we need to watch and we ruled out other diagnoses, then we may need to consider psychiatric evaluation if she is still not at baseline. cc: Juan Diego Tapia MD MTDD
[2018-11-24 17:39] LABS: I-STAT BE -3 mmoll (-2-3); I-STAT GLUCOSE 170 mg/dL (70-105); I-STAT HEMOGLOBIN 12.9 g/dL (11.5-17.5); I-STAT K 3.1 mmoll (3.5-4.9); I-STAT TCO2 23 mmoll (23-27)
[2018-11-24] MEDS ORDERED: LEVAQUIN PO SCH (21:00)
[2018-11-24] MEDS: PROTONIX PO SCH (21:07)
[2018-11-24] MEDS: MAXIPIME 2 GM in NS 100 ML IV SCH (23:44)
[2018-11-25] MEDS: NS 1,000 ML IV SCH (04:24)
[2018-11-25 07:18] LABS: BASO# 0.05 X1000 (0.0-0.2); BASO% 0.4 % (0.0-0.8); EOS# 0.14 X1000 (0.0-0.7); EOS% 1.2 % (0.0-10.0); HEMATOCRIT 26.7 % (37.0-47.0); HEMOGLOBIN 8.2 g/dL (12.0-16.0); IMM GRAN# 0.02 X1000 (0.0-0.04); IMM GRAN% 0.2 % (0.0-0.5); LYMPH% 21.1 % (20.5-51.1); MCHC 30.7 g/dL (33-37); MCV 94.3 FL (81-99); MONO# 2.15 X1000 (0.11-0.59); MONO% 18.9 % (1.7-9.3); MPV 10.4 FL (7.4-10.4); NEUT# 6.62 X1000 (1.4-6.5); NEUT% 58.2 % (42.2-75.2); PLT 110 X1000 (130-400); RBC 2.83 XMIL (4.2-5.4); RDW 18.7 % (11.5-14.5); WBC 11.38 X1000 (4.8-10.8)
[2018-11-25 07:25] LABS: ALBUMIN 2.2 g/dL (3.5-5.0); CALCIUM 11.3 mg/dL (8.8-10.2); CREATININE 1.3 mg/dL (0.5-0.9); POTASSIUM 3.5 mmol/L (3.5-5.1); TOTAL BILIRUBIN 1.8 mg/dL (0.20-1.00); TOTAL PROTEIN 6.7 g/dL (6.3-8.3)
[2018-11-25] MEDS: XOPENEX NEB INH SCH ×3 (08:10→21:41)
[2018-11-25] MEDS: MAXIPIME 2 GM in NS 100 ML IV SCH ×2 (08:24→22:24)
[2018-11-25] MEDS ORDERED: ATIVAN IV ONE (14:39)
--- NOTE | 2018-11-25 17:28 | Diag Imaging Result Doc PS360 ---
EXAM: MRI BRAIN W/O CONTRAST HISTORY: ams TECHNIQUE: Multisequence, multiplanar images of the brain were obtained without contrast as per standard protocol. COMPARISON: CT brain 11/20/2018 FINDINGS: Many sequences are degraded by patient motion. There is cerebral atrophy. There are no extra-axial collections. Diffusion images show no evidence for acute infarct. There is no evidence for hemorrhage. There is no hydrocephalus. No midline shift or mass effect. There is a small focal midline T2 hyperintensity within the posterior pontomedullary junction in the region of the dorsal periaqueductal olmstead matter, image 8 sequence 5. This finding may be seen with Wernicke's encephalopathy, demyelinating disease, migraine headaches. Correlate clinically. There are no additional areas of abnormal signal within the brainstem, cerebellum or cerebral hemispheres. IMPRESSION: 1.Images are degraded by motion artifact. 2.No evidence for acute infarct. 3.Pontomedullary dorsal midline periaqueductal olmstead matter hyperintensity on FLAIR images could indicate Wernicke's encephalopathy, demyelinating disease, migraine headaches. This finding is only seen on a single image and may be artifactual. Follow-up is recommended. Electronically signed by Devorah Pedroza 11/25/2018 5:25 PM
[2018-11-25] MEDS: PROTONIX PO SCH (22:25)
--- NOTE | 2018-11-25 22:31 | PROGRESS NOTE ---
DATE: 11/25/2018 SUBJECTIVE: Patient still confused, disoriented thinks that the year is 19 something. Notes that she is confused because of [employer]. PHYSICAL: Temperature 98.3, pulse 105, respiratory 18, BP 132/66.General: Patient is awake, alert, she is in no respiratory distress, very pleasant to talk with but confused, disoriented to time person and place. Neck: Supple. CV: Regular rate. Chest: Clear, nonlabored. Abdomen: Soft. Extremities: Moves all extremities. Neuro: No changes. LABS: Reviewed, calcium elevated at 11.7. AST, ALT elevated. ASSESSMENT: 1. Acute kidney disease continues to improve, creatinine is down to 1.3 . 2. Acute hepatitis. 3. Hypercalcemia. Labs are still pending. 4. Pneumonia. 5. Altered mental status. MRI was relatively benign, neurology has seen the patient and has scheduled an EEG. cc: Rick Pritchard MD
--- NOTE | 2018-11-26 06:45 | CONSULTATION ---
DATE OF CONSULTATION: 11/25/2018 REASON FOR CONSULTATION: Altered mental status. HISTORY OF PRESENT ILLNESS: This is a 58-year-old right-handed female with morbid obesity, type 2 diabetes, reported bipolar disorder. She is admitted on 2018 with altered mental status which had been present, I believe, for a couple of days. The history is from chart review and some from the patient's friend who is in the room at the time of the encounter. The patient cannot provide an adequate history due to her confusion. Apparently, she has somewhat recently moved in with her mother and the patient states that they do not get along. She has a difficult time remembering to take her medications and I believe there is a neighbor, Xiomara, who is the person who mostly helps her. She cannot tell me her medications. Her friend states that she takes something for bipolar disorder and for diabetes amongst other, but she is not certain of those. On arrival, the patient was noted to have acute renal failure, a leukocytosis, elevated blood sugars and elevated liver enzymes. In addition, she has been treated for urinary tract infection as well as pneumonia. Her calcium is also elevated. Her altered mental status has sort of waxed and waned it sounds like during her stay, and she is still confused, prompting neurologic consultation. The patient reports having some minor memory difficulties off and on for a long time now. Her friend states that she has noticed some forgetfulness long-standing. She also reports history of breast cancer managed with a left-sided mastectomy maybe 3 years ago. This was performed in [place]. She also reports history of non-Hodgkin's lymphoma managed in [place] more than 10 years ago. She had chemotherapy. She has not had follow up for these. PAST MEDICAL HISTORY: Includes 1. Hypertension. 2. Diabetes. 3. Bipolar disorder. 4. Morbid obesity. 5. Breast cancer status post left mastectomy. 6. Non-Hodgkin's lymphoma years ago, status post chemotherapy by her report. FAMILY HISTORY: No strokes. She believes her brother may have had a seizure following a car accident. No cancers. SOCIAL HISTORY: She has moved in with her mom recently, and the two of them have not gotten along. Her mother has now been hospitalized apparently. No tobacco, alcohol, or illicits. ALLERGIES: No known drug allergies listed in the chart. HOME MEDICATIONS: These are unknown at this time. Friend reports that she takes something for bipolar disorder. Current medications were reviewed in the chart. She is on cefepime and has p.r.n. Haldol. She had 0.5 mg of lorazepam at about 3 o'clock today. REVIEW OF SYSTEMS: Balance of 12 was conducted and was otherwise negative except as detailed in the HPI. PHYSICAL EXAMINATION: Vital Signs: She has been afebrile. Blood pressure 115/ 55, pulse low 100s, respirations 18, 96% on room air. Neurologic: Ms. Bragg is supine in bed. She was on the phone when I enter the room and had a coherent conversation during that time. Subsequent conversation with me seems more slowed. She is oriented to self, friend, hospital, city, and the month, but not otherwise. Sometimes her thinking is tangential. There is no language disturbance detected on bedside testing. No dysarthria. She has difficulty discussing recent events and remote events. She follows simple and complex commands. Left-right digit distinction preserved. Pupils are equal, round, and reactive to light. Gaze conjugate. Extraocular movements are full. Visual north intact to direct confrontational testing. Face symmetric with equal activation. Facial sensation reported intact. Tongue is midline. Cannot visualize the palate. Shoulder shrug is full. No drift. Tone is symmetric in the limbs. Strength is preserved and symmetric in the limbs. [id number] and rapid alternating movements are intact. Reflexes are absent at the ankles and knees, trace at the wrists. No clonus. Plantar response is downgoing. She reports symmetric sensation to light touch in the arms and legs. I did not test her gait. DIAGNOSTICS: Head CT noncontrast personally reviewed. No acute findings. MRI of the brain noncontrast has been performed. The report is pending. I personally reviewed the images and did not see any obvious acute findings. White count 11.3. Calcium has been elevated in 10s and 11s. Ionized calcium is 1.66. Normal sodium, BUN 44, creatinine 2.7 on admission, current 15 and 1.3. Blood sugars have been 120s to 190s. AST 132, ALT 46 on admission, current 156 and 50. Alkaline phosphatase 170. B12 greater than 2000, folate 31. She had Citrobacter in the urine. I did not see a toxicology. ASSESSMENT AND PLAN: Global encephalopathy, multifactorial. Multiple metabolic derangements could be contributing. Some of those have improved some during the stay. In addition, urinary tract infection, possible pneumonia. Potential contribution from medication changes; I believe the home list is still being clarified. Friend reports she does take something for bipolar disorder at home. If the patient does have any underlying cognitive impairment syndrome, then she would be predisposed to a more protracted course of encephalopathy with any toxic metabolic or other derangement. My hope is that she will continue to show some improvement with correction of the abnormalities. As she has been here for a few days now, I think it is reasonable to order a routine EEG and I will order that. Also ordered ammonia level. Negative cranial imaging and nonfocal neurologic exam as well as lack of fever are reassuring. Given her medical history, if improvement is not seen, I would suggest MRI with contrast, once able. Thank you for the consultation. cc: Elisabeth Slaughter MD MTDD
[2018-11-26 06:47] LABS: BASO# 0.08 X1000 (0.0-0.2); BASO% 0.7 % (0.0-0.8); EOS# 0.25 X1000 (0.0-0.7); EOS% 2.2 % (0.0-10.0); HEMATOCRIT 28.8 % (37.0-47.0); HEMOGLOBIN 8.9 g/dL (12.0-16.0); IMM GRAN# 0.02 X1000 (0.0-0.04); IMM GRAN% 0.2 % (0.0-0.5); LYMPH# 2.39 X1000 (1.2-3.4); LYMPH% 21.1 % (20.5-51.1); MCH 29.7 PG (27-31); MCHC 30.9 g/dL (33-37); MONO# 1.99 X1000 (0.11-0.59); MONO% 17.6 % (1.7-9.3); MPV 10.4 FL (7.4-10.4); NEUT# 6.59 X1000 (1.4-6.5); NEUT% 58.2 % (42.2-75.2); PLT 124 X1000 (130-400); WBC 11.32 X1000 (4.8-10.8)
[2018-11-26 07:08] LABS: ALBUMIN 2.4 g/dL (3.5-5.0); CREATININE 1.2 mg/dL (0.5-0.9); POTASSIUM 3.7 mmol/L (3.5-5.1); TOTAL BILIRUBIN 1.9 mg/dL (0.20-1.00); TOTAL PROTEIN 7.2 g/dL (6.3-8.3)
[2018-11-26 07:11] LABS: CALCIUM 12.1 mg/dL (8.8-10.2)
[2018-11-26] MEDS: MAXIPIME 2 GM in NS 100 ML IV SCH ×2 (09:17→21:31)
--- NOTE | 2018-11-26 09:56 | Diag Imaging Result Doc PS360 ---
EXAM: CT ABD/PELVIS W/IV CONT ONLY - 11/26/2018 HISTORY: hypercalcemia/elev alk phos TECHNIQUE: CT abdomen/pelvis with intravenous contrast. No oral contrast administered per request of the referring provider. COMPARISON: None. FINDINGS: There is a small left pleural effusion. There is hepatomegaly. There is no focal liver lesion identified. There is mild splenomegaly. There is a medium amount of ascites. There is some relatively generalized subcutaneous edema/anasarca. There is mild prominence of the left adrenal gland. There is no pancreatic mass or inflammation identified. The gallbladder surgically absent. The bilateral kidneys enhance homogeneously. There is no hydronephrosis. There are mildly prominent retroperitoneal lymph nodes. There are lumbar spine degenerative changes noted. There is no evidence of bowel obstruction. The appendix is not discretely visualized. There is no obvious pericecal inflammation. There is no substantial bowel wall thickening identified. There is mild colonic diverticulosis. There is no evidence of diverticulitis. There is no abscess identified. There is no free air. IMPRESSION: Hepatomegaly. No discrete focal liver lesion. Mild splenomegaly. Medium amount of ascites. Small left pleural effusion. Mild prominence of left adrenal gland. Mildly prominent retroperitoneal lymph nodes. Lumbar spine degenerative changes noted. No bowel obstruction. Uncomplicated colonic diverticulosis. No abscess. No free air. This exam was performed using automated exposure control, adjustment of mA or kV according to patient size, and/or use of iterative reconstruction technique. Electronically signed by Daniel Gustafson 11/26/2018 9:53 AM
[2018-11-26] MEDS: XOPENEX NEB INH SCH ×3 (10:40→20:02)
[2018-11-26] MEDS ORDERED: NS 1,000 ML IV SCH ×2 (12:15→18:00)
[2018-11-26] MEDS ORDERED: ZOFRAN IV PRN (17:34)
[2018-11-26] MEDS ORDERED: CALMOSEPTINE OINTMENT TOP PRN (17:35)
[2018-11-26] MEDS: PROTONIX PO SCH (21:07)
[2018-11-26] MEDS: HALDOL IV PRN (21:08)
--- NOTE | 2018-11-26 23:32 | PROGRESS NOTE ---
DATE: 11/26/2018 SUBJECTIVE: Patient is still confused, disoriented. OBJECTIVE: Vital signs: Temperature 97.3 degrees pulse 105, respiratory 22, BP 124/55. General: Patient is currently in no distress. She is awake, alert but confused, disoriented. HEENT: Normocephalic. Neck: Supple. CARDIOVASCULAR: Regular rate. Chest: Clear, nonlabored. Abdomen: Soft, nondistended. No masses. No hepatosplenomegaly. Extremities: Moves all extremities. No edema. Neurologic: No focal changes from yesterday's exam. ASSESSMENT: 1. Acute kidney injury. Appears resolved. 2. Acute hepatitis with elevated AST, ALT. 3. Hypercalcemia. 4. Pneumonia. 5. Chronic dementia with questionable acute changes. PLAN: Patient's potassium is still elevated as are her LFTs. We will check a CT of the abdomen, pelvis, and likely a CT chest. She does have a history of breast cancer, need to rule out metastases as the cause of her elevated potassium, and will follow. cc: Rick Pritchard MD
[2018-11-27] MEDS: HALDOL IV PRN ×3 (01:41→20:32)
[2018-11-27] MEDS: XOPENEX NEB INH SCH ×3 (07:26→22:16)
[2018-11-27 07:33] LABS: BASO% 0.8 % (0.0-0.8); EOS% 1.6 % (0.0-10.0); HEMATOCRIT 28.2 % (37.0-47.0); HEMOGLOBIN 8.4 g/dL (12.0-16.0); IMM GRAN# 0.03 X1000 (0.0-0.04); IMM GRAN% 0.2 % (0.0-0.5); LYMPH# 3.17 X1000 (1.2-3.4); LYMPH% 25.3 % (20.5-51.1); MCH 29.1 PG (27-31); MCHC 29.8 g/dL (33-37); MCV 97.6 FL (81-99); MONO# 2.32 X1000 (0.11-0.59); MONO% 18.5 % (1.7-9.3); MPV 10.9 FL (7.4-10.4); NEUT# 6.71 X1000 (1.4-6.5); NEUT% 53.6 % (42.2-75.2); PLT 130 X1000 (130-400); RBC 2.89 XMIL (4.2-5.4); RDW 18.7 % (11.5-14.5); WBC 12.53 X1000 (4.8-10.8)
[2018-11-27 07:37] LABS: MAGNESIUM 1.5 mg/dL (1.5-2.7); PHOSPHORUS 2.8 mg/dL (2.7-4.5)
[2018-11-27 07:47] LABS: ALB/GLOB RATIO 0.6; ALBUMIN 2.6 g/dL (3.5-5.0); TOTAL BILIRUBIN 1.84 mg/dL (0.20-1.00); TOTAL PROTEIN 6.9 g/dL (6.3-8.3)
[2018-11-27 08:08] LABS: CALCIUM 13.1 mg/dL (8.8-10.2)
[2018-11-27] MEDS: MAXIPIME 2 GM in NS 100 ML IV SCH ×2 (08:19→20:33)
--- NOTE | 2018-11-27 08:22 | EEG REPORT ---
DATE: 11/25/2018 REFERRING: Elisabeth Slaughter MD [employer] PORTER: Prema Choudhury. BACKGROUND INFORMATION AND TECHNIQUE: This is a digitally recorded routine EEG with video. HISTORY: A 58-year-old female patient with altered mental status. EEG is ordered to detect evidence of seizures. MEDICATIONS: Protonix, Maxipime, and Xopenex. EEG FINDINGS: A posterior dominant alpha rhythm is not visualized. The background consists of theta slowing with admixed faster frequencies. Rare to occasional diffuse triphasic waves are seen during the study. No definite persistent focal slowing. No definite epileptiform discharges. No seizures. Hyperventilation was not performed. Photic stimulation induced a normal driving response. The patient becomes drowsy and enters into stage II sleep. EKG demonstrates regular RR intervals. IMPRESSION AND CLINICAL CORRELATION: Abnormal routine EEG due to mild-to- moderate generalized slowing with triphasic waves indicative of a [id number] nonspecific encephalopathy. No epileptiform discharges and no seizures seen on the current study. This does not rule out an underlying seizure disorder. Generalized slowing is a nonspecific finding than can be seen in processes that diffusely effect the cerebrum including toxic, metabolic, pharmacologic, post hypoxic and infectious etiologies amongst others. Triphasic waves are also a nonspecific finding seen with encephalopathy, most often with hepatic or renal derangements. cc: Elisabeth Slaughter MD [facility]
[2018-11-27] MEDS ORDERED: MIACALCIN SUBQ ONE (09:07)
[2018-11-27] MEDS ORDERED: ZOMETA 4 MG in NS 100 ML IV ONE (09:07)
[2018-11-27] MEDS: NS 1,000 ML IV SCH ×4 (09:16→22:57)
--- NOTE | 2018-11-27 09:54 | Diag Imaging Result Doc PS360 ---
EXAM: CT THORAX W/CONTRAST INDICATION: hypercalcemia TECHNIQUE: This exam was performed using automated exposure control, adjustment of mA or kV according to patient size, and/or use of iterative reconstruction technique. COMPARISON: Abdominal CT dated 11/26/2018. No prior dedicated chest CT is available for comparison. FINDINGS: There is a small left pleural effusion and left basilar atelectasis. There is trace fluid in the major fissure on the right. There is a small opacity at the periphery of the left upper lobe at the lingula that probably represents focal fibrosis. A component of pneumonia is possible, however. There is no evidence of pneumothorax. There is no cardiomegaly. There is no evidence of significant mediastinal or hilar lymphadenopathy. Limited views of the upper abdomen reveal stable ascites. There is a nonspecific expansile lytic focus associated with the left fourth rib posterior laterally. There is also some surrounding sclerosis. There is also mild irregularity at the fourth rib on the left anteriorly directly overlying the aforementioned lingular opacity with the appearance of fibrosis. It is possible that this represents the site of an old trauma. However, the lytic focus is atypical. A neoplastic lesion cannot completely be excluded. Similarly, there is a small lytic appearing focus involving the transverse process of the fourth vertebra on the left. There has been a prior left mastectomy. IMPRESSION: 1.Small left pleural effusion with left basilar atelectasis. 2.Peripheral opacity at the lingula that probably represents scarring plus or minus superimposed infection. Consider follow-up to assure resolution or stability. 3.Nonspecific focal lytic lesion involving the fourth rib and the transverse process of the fourth vertebra on the left. Electronically signed by Eric Holland 11/27/2018 9:51 AM
--- NOTE | 2018-11-27 11:09 | PROGRESS NOTE ---
DATE: 11/27/2018 Dr. Slaughter saw Ms. Bragg earlier this week for Neurology consultation. She has a global encephalopathy. She has been afebrile. EEG showed generalized slowing and some triphasic waves. Lab shows calcium 13.1. She has a few other minor metabolic problems, but nothing else prominent. There has been question of medication effect. Chart shows she received haloperidol 1 mg IV, 3 doses in the last 12 hours. This morning, she is awake, alert, attentive. She had appropriate conversation with me, but was not able to answer all questions correctly. She told me that she is in the hospital, initially said "[place]" and then agreed when I told her she had moved to [facility]. She did not answer when asked what town she lives in. She did not answer when I asked her to name the President. She followed simple commands and complicated commands well. She followed commands requiring digit distinction and right/left distinction. She did well on finger- to-nose testing bilaterally. Extraocular movements are full. Strength is symmetric on brief testing in the limbs. I did not test her gait. She has full visual north tested by confrontational finger counting and she has full extraocular movements. IMPRESSION: Global encephalopathy, possibly multifactorial, possibly metabolic and toxic contributions. The EEG is consistent with primarily metabolic encephalopathy. No evidence of seizure. She seems improved today. I do not have any urgent suggestion from neurologic standpoint. Further plans will depend on her clinical course. Thanks for asking Neurology to see Ms. Bragg. cc: MD FRANKIE Hanson III
--- NOTE | 2018-11-27 11:26 | PROGRESS NOTE ---
DATE: 11/27/2018 SUBJECTIVE: This morning Ms. Bragg referred to be doing fairly okay. She remains fairly obtunded. OBJECTIVE: Vital Signs: Blood pressure is 151/83, pulse is 110, respirations 18, temperature 97.9 degrees. General: Ms. Bragg is a 58-year-old female. She is in bed. She did not seem to be in any cardiopulmonary distress. HEENT: Mucosa is pink and slightly dry. Anicteric. Acyanotic. Neck: Supple. No JVD. Respiratory System: There is good air entry bilaterally. No crepitations. No rhonchi. Cardiovascular: Regular rate and rhythm. No murmurs, no rubs, no gallops. Chest: On the chest wall, the left side, there is a port palpated. The patient also has bilateral mastectomy with breast reconstruction surgery bilaterally. Abdomen: Soft, distended, but nontender. Bowel sounds present. Extremities: No pedal edema. Central Nervous System: The patient is awake, oriented to person, disoriented to place and time. Moves all extremities. She does not seem to have any focal deficit. However, she remains extremely confused. LABORATORY DATA: WBC is 12.53, hemoglobin is 8.4, platelet count of 130,000. Chemistry is also reviewed. Sodium is 142, potassium is 4, chloride is 110, bicarbonate is 22. Creatinine is 1, this has fairly normalized from 4.2 on admission. Calcium is up to 13.1. Liver enzymes are also slightly elevated. The patient's BMI is 43.4. IMAGING STUDIES: An echocardiogram shows ejection fraction of 70%. Grade 1 ventricular diastolic dysfunction is suggested. The vena cava suggests normal central venous pressure. An ultrasound of the abdomen was done, which showed hepatomegaly with fatty infiltration, mild splenomegaly. A head CT scan was unremarkable. An MRI of the brain, which was done on the 4th showed, no evidence for acute infarction. There was some pontomedullary dorsal midline olmstead matter hyperintensity, which could indicate Wernicke encephalopathy, demyelinating disease, or migraine headaches. A CT scan of the abdomen and pelvis showed hepatomegaly, but no discrete focal liver lesion. There is mild splenomegaly as well. A CT chest showed peripheral opacity at the lingula that probably represents scarring plus/minus superimposed infection. There was a nonspecific focal lytic lesion involving the 4th rib and a transverse process of the 4th vertebra on the left. ASSESSMENT AND PLAN: 1. Altered mental status, likely secondary to metabolic encephalopathy from hypercalcemia and dehydration. 2. Clinical volume depletion. We will continue with adequate hydration. 3. Malignant Hypercalcemia. Her parathyroid hormone is low, which will mean this is non-parathyroid hormone related hypercalcemia. The patient has a history of breast cancer. A CT scan of the chest shows some lytic lesions on the bone, which putting it all together will suggest a malignant cause for this hypercalcemia. The source is apparently unclear. The CEA is extremely elevated, which is concerning for colon; however, it could also be the recurrence of the patient's breast cancer. We are going to increase the hydration rate, and we will give the patient zoledronic acid together with calcitonin, and we will get Oncology to evaluate the patient and assist us with the diagnosis of the possible occult malignancy. 4. Transaminitis, presumably due to steatohepatitis. 5. Severely elevated CEA. Unsure if the patient has any colonic cancer. So far, the CT scan of the abdomen and pelvis did not reveal any mass. Gastrointestinal has been consulted to evaluate her as well. 6. Suspected pneumonia. The patient is on antibiotics. 7. Citrobacter koseri urinary tract infection. This has been completely treated. A repeat culture on the 4th was negative. DISCUSSION/SUMMARY: In general today we are going to increase the rate of the fluid to 150 mL/hour. We are going to repeat the patient's calcium at about 2 p.m. today. We have given the patient a dose of zoledronic acid, as well as calcitonin, and we will consult Hematology/Oncology to see her. The patient is being followed up by Neurology, as well as GI. cc: Aden Ridley MD [facility]
[2018-11-27] MEDS: PROTONIX PO SCH (20:32)
[2018-11-28] MEDS: HALDOL IV PRN ×3 (01:38→22:19)
--- NOTE | 2018-11-28 05:43 | GASTROENTEROLOGY CONSULTATION ---
DATE: 11/28/2018 REASON FOR CONSULTATION: Abnormal LFTs HISTORY OF PRESENT ILLNESS: Ms. Sri Bragg is a 58-year-old woman with a past medical history of hypertension, diabetes, bipolar disorder, morbid obesity, history of breast cancer status post left mastectomy, remote non-Hodgkin's lymphoma status post chemotherapy, who presented on 11/19/2018 with altered mental status for several days. History is obtained from the chart given the patient's altered mental status. Per report the patient has been having some confusion recently and had an outpatient CT about a week prior to presentation that did not reveal any acute finding. She was also recently diagnosed with diabetes. On presentation she was found to have anemia, acute kidney injury, abnormal LFTs, hypercalcemia, left lower lobe pneumonia. She was seen by Neurology during her hospitalization and they thought that her altered mental status was from global encephalopathy from her multiple metabolic derangement infection and EEG and possibly MRI suggested. Ammonia level was ordered, which was 42. Urine culture showed Citrobacter koseri. REVIEW OF SYSTEMS: Negative for nausea, vomiting, fever, shortness of breath, chest pain, abdominal pain; however, this is limited given her altered mental status. PAST MEDICAL HISTORY: Diabetes, reported CHF, chronic kidney disease, remote breast cancer and non-Hodgkin's lymphoma, morbid obesity, bipolar disorder, hypertension. FAMILY HISTORY: Per report is negative for malignancies. SOCIAL HISTORY: She recently moved in with her mom. No reported history of tobacco, alcohol or drug use. ALLERGIES: No known drug allergies listed. HOME MEDICATIONS: Hyzaar, metformin, omeprazole, Cymbalta, tolterodine, Metrazol, furosemide. PHYSICAL EXAMINATION: Vital Signs: Temperature 98.4 degrees, pulse 116, respiratory rate 103, blood pressure 172/92, O2 saturation 100% on room air. General: The patient is sleepy but arousable, answers questions incoherently, occasionally appropriately. HEENT: Sclerae anicteric. Moist mucous membranes. Neck: No JVD. No lymphadenopathy. Cardiac: Tachycardic. Regular. No murmurs. Lungs: Clear to auscultation bilaterally. Shallow breathing. Abdomen: Obese, soft, nontender, nondistended. Normoactive bowel sounds. No rebound or guarding. Extremities: No clubbing, cyanosis or edema. Warm and well perfused. Neurologic: The patient is moving her extremities symmetrically. No focal deficits. She is awake; however, not oriented to place or time, only to self. LABS: White count 11.3, hemoglobin 8.9, platelets of 124,000, unknown baseline hemoglobin, MCV 96. Sodium 141, potassium 3.7, chloride 109, bicarbonate 23, BUN is 13, creatinine 1.2, glucose 132, total bilirubin 1.9, AST of 189, ALT 67, alkaline phosphatase 177, ammonia 42, total protein 7.2, albumin 2.4. CEA 142, PTH of 15, normal C3 and C4. Hepatitis panel is negative. UA on admission showed pyuria. Urine culture was Citrobacter koseri. Blood cultures x2 is negative to date. Iron studies show elevated ferritin 683, normal iron. Normal B12 and folate. Protein electrophoresis showed elevated alpha 1. He has an elevated IgG and IgA. Calcium has been increasing up to 12.1 today. IMAGING: Abdominal ultrasound on 11/20/2018 showed hepatomegaly with fatty infiltration, mild splenomegaly, prior cholecystectomy, a small amount of fluid around the liver. Head CT was negative. Chest x-ray on 11/24/2018 showed interval improvement of a left pleural effusion and adjacent atelectasis and/or infiltrate that is slightly improved. Brain MRI was limited given motion artifact. CT abdomen and pelvis on 11/26/2018 showed hepatomegaly with no discrete liver lesion, mild splenomegaly, medium amount of ascites, a small left pleural effusion, mild prominence of left adrenal gland with retroperitoneal lymph node enlargement. No bowel obstruction. Diverticulosis without diverticulitis. CT of the chest this morning showed a small left pleural effusion, peripheral opacity at the lingula that could probably represent scarring, plus or minus superimposed infection, nonspecific focal lytic lesion in the 4th rib, and the transverse processes of the 4th vertebra on the left. ASSESSMENT AND PLAN: Ms. Sri Bragg is a 58-year-old woman admitted with altered mental status, found to have possible pneumonia and urinary tract infection as well as acute kidney injury, hypercalcemia, elevated LFTs, anemia and elevated carcinoembryonic antigen. The patient has no known history of liver disease or alcoholism. The pattern of her liver function tests suggests alcoholic liver disease given the AST and ALT ratio of 2:1; however, this can also be seen in patients with cirrhosis secondary to fatty liver. Her ammonia is not significantly elevated, although this is a poor correlate for hepatic encephalopathy. Other than her metabolic derangements and infection, there is no obvious etiology for her altered mental status. 1. Abnormal LFTs: Hepatitis panel was negative. Her elevated ferritin is likely an acute phase reactant given the normal iron level. For her abnormal liver function tests we will check an CHRISTIANA and anti smooth muscle antibody, ceruloplasmin, alpha-1 antitrypsin. 2. AMS: We can consider giving her lactulose empirically for hepatic encephalopathy. We will start her on lactulose 30 mL twice daily and titrate to have 2-3 bowel movements daily. Workup ongoing with Neurology and primary team 3. UTI/PNA: she is currently on cefepime. 4. Anemia: no overt bleeding; her anemia was normocytic, B12, folate and iron were within normal limits. 5. Elevated CEA: It is unclear if the patient has never had a esophagogastroduodenoscopy or colonoscopy in the past. She does have an elevated carcinoembryonic antigen concerning for possible gastrointestinal malignancy. No obvious gastrointestinal lesions seen on CT of the chest, abdomen or pelvis. The patient may need endoscopic evaluation while in the hospital 6. Hypercalcemia: question of her elevated hypercalcemia is secondary to a paraneoplastic process. It would be unusual for a gastric adenocarcinoma; however, it can be seen in GI neuroendocrine tumors. She is on Zometa and intravenous fluids. 7. Acute kidney injury: improving. 8. GI ppx: She is on a proton pump inhibitor We will follow with you. Please call with any questions or concerns. MTDD
[2018-11-28] MEDS: NS 1,000 ML IV SCH ×2 (06:37→16:02)
[2018-11-28 08:05] LABS: BASO# 0.06 X1000 (0.0-0.2); BASO% 0.5 % (0.0-0.8); EOS# 0.06 X1000 (0.0-0.7); EOS% 0.5 % (0.0-10.0); HEMATOCRIT 27.7 % (37.0-47.0); HEMOGLOBIN 8.3 g/dL (12.0-16.0); IMM GRAN# 0.02 X1000 (0.0-0.04); IMM GRAN% 0.2 % (0.0-0.5); LYMPH# 2.03 X1000 (1.2-3.4); LYMPH% 15.7 % (20.5-51.1); MCH 28.7 PG (27-31); MCV 95.8 FL (81-99); MONO# 2.08 X1000 (0.11-0.59); MONO% 16.1 % (1.7-9.3); MPV 10.7 FL (7.4-10.4); NEUT# 8.67 X1000 (1.4-6.5); PLT 129 X1000 (130-400); RBC 2.89 XMIL (4.2-5.4); RDW 18.6 % (11.5-14.5); WBC 12.92 X1000 (4.8-10.8)
[2018-11-28 08:14] LABS: AGAP 9; ALB/GLOB RATIO 0.6; ALBUMIN 2.6 g/dL (3.5-5.0); ALKALINE PHOSPHATASE 169 U/L (32-104); BUN 12 mg/dL (8-22); CALCIUM 11.1 mg/dL (8.8-10.2); CHLORIDE 108 mmol/L (98-107); COSMO 275; CREATININE 0.9 mg/dL (0.5-0.9); ESTIMATED GFR > 60; GLUCOSE 127 mg/dL (70-104); GOT 191 U/L (10-30); GPT 60 U/L (10-36); POTASSIUM 3.8 mmol/L (3.5-5.1); SODIUM 137 mmol/L (136-145); TCO2 20 mmol/L (25-35); TOTAL BILIRUBIN 1.93 mg/dL (0.20-1.00); TOTAL PROTEIN 6.8 g/dL (6.3-8.3)
[2018-11-28] MEDS: XOPENEX NEB INH SCH ×3 (08:15→21:25)
[2018-11-28] MEDS: MAXIPIME 2 GM in NS 100 ML IV SCH ×2 (09:18→20:46)
[2018-11-28] MEDS: LACTULOSE PO SCH ×2 (09:19→20:45)
--- NOTE | 2018-11-28 09:53 | GASTROENTEROLOGY PROGRESS NOTE ---
DATE: 11/28/2018 SUBJECTIVE: Resting in bed. Her mother is at the bedside. The patient is currently getting a breathing treatment. She denies any nausea, vomiting, vomiting blood, or passing blood in the stools. OBJECTIVE: Vital Signs: Temperature 98 degrees, pulse rate of 116, respiratory rate of 22, blood pressure 160/85, saturating 98% on room air. Body weight of 269 pounds, BMI 43.4 kg. General Appearance: Obese, lying in bed in no acute distress. HEENT: Positive pallor. Positive icterus. Pupils equal, reactive to light and accommodation. Neck: Supple. Abdomen: Obese, soft, nondistended. No guarding or rebound. Extremities: No cyanosis, clubbing. Neurologic: She is alert, awake, oriented x3. LABORATORY DATA: Hemoglobin and hematocrit are 8.3 and 27.7, white count of 12.9, platelet count of 129,000. Sodium 137, potassium 3.8, chloride 108, bicarb 20, anion gap 9, BUN of 12, creatinine 0.9, glucose of 127, calcium is 11.1. Total bilirubin is 1.93, AST 191, ALT 60, alkaline phosphatase 169, total protein 6.2, albumin of 2.6. CEA is 142. Her urine protein electrophoresis shows no monoclonal band identified. Her complement levels of C3 and C4 are normal. Her blood cultures have been negative at 5 days. Urine culture showing Citrobacter koseri, which is hall sensitive. IMPRESSION AND PLAN: 1. Elevated liver enzymes. Will follow up on the chronic liver disease workup. 2. Morbid obesity. This could be contributing to fatty liver disease. Will encourage the patient to lose weight. 3. Elevated CEA. She will benefit from esophagogastroduodenoscopy and colonoscopy. Will try to schedule for esophagogastroduodenoscopy tomorrow if okay with the primary care team. 4. Hypercalcemia. This is being worked up by the primary care team. There is a question of paraneoplastic syndrome. 5. Acute kidney injury, improving. 6. Gastrointestinal prophylaxis. Proton pump inhibitor. 7. Anemia. Continue to watch for now, and transfuse as needed. Will start her on multivitamin once daily and iron twice daily. 8. Will keep her on bowel regimen with lactulose 30 mL by mouth twice daily. Her CT scan during this admission showed evidence of hepatomegaly and mild splenomegaly and medium amount of ascites, but this could be secondary to fatty liver disease, maybe early cirrhosis. 9. Diverticulosis in the colon was noted on the CT scan. She will need to have high-fiber diet. Avoid excessive corn, nuts, and seeds. 10. Will tentatively schedule for esophagogastroduodenoscopy tomorrow with Dr. Lobo. The risks, benefits, indications, and alternatives were discussed with the patient and family, and all questions were answered. Please call with questions. cc: Pantera Johnson MD
--- NOTE | 2018-11-28 11:27 | PROGRESS NOTE ---
DATE: 11/28/2018 LOCATION: Room [address]B. Ms. Bragg is awake and alert, mostly attentive. She identified the hospital more consistently today than when I questioned her yesterday. She did not tell me the correct day of the week today. Her conversation was mostly appropriate. Calcium is down to 11.1, and workup for that is in progress. I do not see anything new neurologically. No new suggestions from neurologic standpoint today. Thank you for asking us to see Ms. Bragg. cc: MD FRANKIE Hanson III
[2018-11-28 12:18] LABS: INR 1.63; PROTIME 20.6 Seconds (11.0-16.0)
[2018-11-28] MEDS ORDERED: LASIX IV ONE (12:47)
[2018-11-28] MEDS ORDERED: NS 250 ML ONE (14:16)
--- NOTE | 2018-11-28 16:49 | PROGRESS NOTE ---
DATE: 11/28/2018 SUBJECTIVE: This morning Ms. Bragg referred to be doing a little better. I think she was responding more appropriately today than yesterday, and she looks more interactive. OBJECTIVE: Vital signs: Blood pressure was 162/97, pulse of 117, respiration is 20, temperature is 98.1 degrees. The patient was saturating 100% on room air. General: On general exam, Ms. Bragg is a 58-year-old female. She is in bed, was not in any cardiopulmonary distress. HEENT: Mucosa was pink and moist. Anicteric. Acyanotic. Neck: Supple. There was no JVD. Chest: Air entry was bilaterally reduced. A few crackles posteriorly. Cardiovascular: Regular rate and rhythm. There was no murmurs, no rubs, no gallops. GI: Abdomen was soft, nontender, distended. Bowel sounds were present. Extremities: 1+ pedal edema. CAMERA REPAIRMAN: Patient was more awake and more interactive, was oriented to person and place, but disoriented to time. Musculoskeletal: The patient does have bilateral mastectomy with breast reconstruction surgery bilaterally. There is a port on the right anterior chest wall. LABORATORY DATA: WBC is 12.92, hemoglobin is 8.3, platelet count of 129. Sodium is 137, potassium is 3.8, chloride is 108, bicarbonate is 20. Creatinine has normalized to 0.9 today. Calcium is also down to 11.1. AST and ALT fairly the same as before. ASSESSMENT: 1. Altered mental status secondary to toxic metabolic encephalopathy from hypercalcemia and dehydration. Patient seems to be getting a lot better. Neurology is on board. 2. Clinical volume depletion, improving. Patient is on intravenous fluids. She actually seems to be retaining some of the fluid in the lower extremities and in the lungs. We will give her 1-time dose of Lasix 40 mg today and re-evaluate her status tomorrow. 3. Malignant hypercalcemia. Etiology is still a work in progress. The patient was evaluated by Hematology/Oncology. We are pending their further recommendation. A bone scan has already been ordered. The patient does have history of breast cancer, and there is a high suspicion that this is probably what is causing her problem. 4. Transaminitis presumably due to hepatic steatosis. 5. Severely elevated carcinoembryonic antigen. The patient is pending endoscopic evaluation with Gastroenterology, hopefully tomorrow. 6. Citrobacter koseri urinary tract infection. The patient is on antibiotics. 7. Left lingular pneumonia. We will continue with the current antibiotics. PLAN: So, in general, Ms. Bragg seems more interacting, more alert and more conversational today. Her calcium is also going down. We will continue with the current IV fluids. She seems to be retaining some of the fluid, especially in the lower extremities. We will give her 1 dose of Lasix to help both with the fluid, as well as with the calcium management. The patient was given a dose of zoledronic acid yesterday and calcitonin. We will follow up further with the rest of the investigation studies and further recommendations from the other providers. Please refer to the other details of the progress note in the medical student notes. cc: Aden Ridley MD
[2018-11-28] MEDS: TYLENOL PO PRN (20:45)
[2018-11-28] MEDS: PROTONIX PO SCH (20:46)
[2018-11-29] MEDS: NS 1,000 ML IV SCH ×3 (00:58→16:01)
[2018-11-29 07:25] LABS: BASO# 0.07 X1000 (0.0-0.2); BASO% 0.6 % (0.0-0.8); EOS# 0.13 X1000 (0.0-0.7); EOS% 1.2 % (0.0-10.0); HEMATOCRIT 26.4 % (37.0-47.0); IMM GRAN# 0.02 X1000 (0.0-0.04); IMM GRAN% 0.2 % (0.0-0.5); LYMPH# 1.57 X1000 (1.2-3.4); LYMPH% 14.1 % (20.5-51.1); MCH 28.9 PG (27-31); MCHC 30.3 g/dL (33-37); MCV 95.3 FL (81-99); MONO# 2.11 X1000 (0.11-0.59); MONO% 18.9 % (1.7-9.3); MPV 11.5 FL (7.4-10.4); NEUT# 7.25 X1000 (1.4-6.5); PLT 132 X1000 (130-400); RBC 2.77 XMIL (4.2-5.4); RDW 18.5 % (11.5-14.5); WBC 11.15 X1000 (4.8-10.8)
[2018-11-29 07:40] LABS: AGAP 10; ALB/GLOB RATIO 0.5; ALBUMIN 2.4 g/dL (3.5-5.0); ALKALINE PHOSPHATASE 164 U/L (32-104); BUN 15 mg/dL (8-22); CALCIUM 10.8 mg/dL (8.8-10.2); CHLORIDE 110 mmol/L (98-107); COSMO 281; CREATININE 0.8 mg/dL (0.5-0.9); ESTIMATED GFR > 60; GLUCOSE 109 mg/dL (70-104); GOT 162 U/L (10-30); GPT 55 U/L (10-36); POTASSIUM 3.5 mmol/L (3.5-5.1); SODIUM 140 mmol/L (136-145); TCO2 20 mmol/L (25-35); TOTAL BILIRUBIN 2.03 mg/dL (0.20-1.00); TOTAL PROTEIN 6.8 g/dL (6.3-8.3)
[2018-11-29] MEDS: XOPENEX NEB INH SCH ×3 (07:40→21:10)
[2018-11-29] MEDS ORDERED: XYLOCAINE-MPF 2% ONE (09:53)
[2018-11-29] MEDS ORDERED: DIPRIVAN 1% ONE (09:53)
[2018-11-29] MEDS: LACTULOSE PO SCH ×2 (10:48→21:07)
[2018-11-29] MEDS: MAXIPIME 2 GM in NS 100 ML IV SCH ×2 (10:52→21:07)
--- NOTE | 2018-11-29 14:39 | Diag Imaging Result Doc PS360 ---
BONE SCAN, TOTAL BODY - 11/28/2018 INDICATION: r/o mets TECHNIQUE: 28.7 mCi of MDP was administered COMPARISON: CT chest 11/27/2018 FINDINGS: There is a small solitary focus of indistinct hyperintensity at the lateral left fourth rib. Visible on the posterior views. Otherwise the exam is normal. Soft tissues are unremarkable. IMPRESSION: Solitary focus of increased uptake at the lateral left fourth rib as seen on the prior CT. No additional abnormalities. Electronically signed by Alec Mccollum 11/29/2018 2:37 PM
--- NOTE | 2018-11-29 15:24 | OPERATIVE NOTE ---
PROCEDURE DATE: 11/29/2018 PROCEDURE: Upper gastrointestinal endoscopy. PROVIDER: Les Lobo MD. INDICATIONS: Elevated CEA, rule out gastric malignancy, abnormal LFTs, rule out cirrhosis, esophageal varices. MEDICATIONS: Monitored anesthesia care. INDICATIONS FOR PROCEDURE: Prior to the procedure, a history and physical was performed. The patient medications and allergies were reviewed. The patient's tolerance to previous anesthesia was also reviewed. The risks and benefits of the procedure and the sedation options and risks were discussed with the patient and her family. All questions were answered and informed consent was obtained. After reviewing the risks and benefits, the patient was deemed in satisfactory condition to undergo the procedure. DESCRIPTION OF PROCEDURE IN DETAIL: The endoscope was passed under direct visualization. Throughout the procedure, the patient's blood pressure, pulse and oxygen saturations were monitored continuously. The endoscope was introduced through the mouth and advanced to the second part of the duodenum. The upper GI endoscopy was accomplished without difficulty. The patient tolerated the procedure well. COMPLICATIONS: No immediate complications. ESTIMATED BLOOD LOSS: Minimal. FINDINGS: A small hiatal hernia. Otherwise, esophagus was normal. The stomach showed mild portal hypertensive gastropathy without any signs of active bleeding. The bulb and second portion of duodenum were normal. Ampulla was normal. Retroflexion in the stomach was notable for small hiatal hernia. IMPRESSION: - Small hiatal hernia - Mild portal hypertensive gastropathy suggestive of portal hypertension consistent with chronic liver disease - Normal duodenum - No findings to explain patient's elevated CEA. RECOMMENDATION: - Resume diet and advance as tolerated. - The patient may need virtual diagnostic colonoscopy with CT colonography vs barium enema given unlikely to tolerate prep We will follow with you. Please call with any questions or concerns. MTDD
[2018-11-29] MEDS ORDERED: LASIX IV SCH (15:30)
--- NOTE | 2018-11-29 16:17 | PROGRESS NOTE ---
DATE: 11/29/2018 SUBJECTIVE: This morning Ms Celeste referred to be doing fairly okay. No major complaints. She still remains fairly confused. OBJECTIVE: Vital signs: Blood pressure is 156/86, pulse is 104, respirations 18, temperature 97.7 degrees. General exam: Ms. Bragg is a 58-year-old female .she is in bed. She is not in any cardiopulmonary distress. HEENT: Mucosa still looks slightly dry. Anicteric. Acyanotic. Neck: Supple. Chest: Air entry is bilaterally reduced. There is still some rattling sound in the chest, but no wheezing, no rhonchi. Cardiovascular: Regular rate and rhythm. No murmurs, no rubs, no gallops. GI: Abdomen is soft, distended, but nontender. Extremities: About 1+ pedal edema. REAL PROPERTY APPRAISER: The patient is awake, alert, interacting. She is oriented to person and to place, but disoriented to time. Musculoskeletal: The patient does have bilateral mastectomies with breast reconstruction surgery. LABORATORY DATA: WBC is 11.15, hemoglobin is 8.0, platelet count of 135. Chemistry is also reviewed. Calcium is down to 10.8. ASSESSMENT: 1. Altered mental status, etiology is unclear. Presumably toxic metabolic encephalopathy from hypercalcemia. However, patient's calcium level is getting better. However, her mentation seems to have been lagging behind. At some point, I think the patient would probably need to have a lumbar puncture and make sure there is no any pathology that needs to be addressed from that standpoint. Neurology is on board and will defer that to them. 2. Clinical volume depletion, improving. We will continue with the saline. Patient, however, is retaining some fluids in the lower extremities, so we will continue with the Lasix as well. 3. Malignant hypercalcemia, improved. 4. Transaminitis, presumably due to hepatic steatosis. 5. Citrobacter koseri urinary tract urinary tract infection. The patient is on antibiotics. 6. Left lingular pneumonia. We will continue with the current antibiotic coverage. 7. Elevated CA-15-3 and CA 27-29 which will all be consistent with breast cancer. The patient does have history of breast cancer with bilateral mastectomy and reconstruction surgery. She does have bone CT scan of the chest shows focal lytic lesions involving the fourth rib and transverse process of the fourth, which I suspect is part of the breast cancer. Hematology/Oncology is on board. cc: MD FRANKIE Phan
[2018-11-29] MEDS: HALDOL IV PRN (19:38)
[2018-11-29] MEDS: PROTONIX PO SCH (21:08)
[2018-11-30] MEDS: NS 1,000 ML IV SCH (04:17)
[2018-11-30 07:08] LABS: BASO# 0.06 X1000 (0.0-0.2); BASO% 0.4 % (0.0-0.8); EOS% 0.7 % (0.0-10.0); HEMATOCRIT 27.9 % (37.0-47.0); HEMOGLOBIN 8.3 g/dL (12.0-16.0); IMM GRAN# 0.03 X1000 (0.0-0.04); IMM GRAN% 0.2 % (0.0-0.5); LYMPH# 2.25 X1000 (1.2-3.4); LYMPH% 16.6 % (20.5-51.1); MCHC 29.7 g/dL (33-37); MCV 97.6 FL (81-99); MONO# 2.73 X1000 (0.11-0.59); MONO% 20.2 % (1.7-9.3); MPV 11.1 FL (7.4-10.4); NEUT# 8.37 X1000 (1.4-6.5); NEUT% 61.9 % (42.2-75.2); PLT 125 X1000 (130-400); RBC 2.86 XMIL (4.2-5.4); RDW 19.1 % (11.5-14.5); WBC 13.54 X1000 (4.8-10.8)
[2018-11-30 07:36] LABS: LYMPHS 9 % (21-51); MONO 4 % (1-9); POIKILOCYTOSIS OCCASIONAL; SEGS 87 % (42-75)
[2018-11-30 07:37] LABS: ANISOCYTOSIS OCCASIONAL
[2018-11-30 07:38] LABS: AGAP 12; ALB/GLOB RATIO 0.6; ALBUMIN 2.4 g/dL (3.5-5.0); ALKALINE PHOSPHATASE 170 U/L (32-104); BUN 18 mg/dL (8-22); CALCIUM 10.6 mg/dL (8.8-10.2); CHLORIDE 113 mmol/L (98-107); COSMO 285; CREATININE 0.9 mg/dL (0.5-0.9); ESTIMATED GFR > 60; GLUCOSE 101 mg/dL (70-104); GOT 156 U/L (10-30); GPT 54 U/L (10-36); SODIUM 142 mmol/L (136-145); TCO2 17 mmol/L (25-35); TOTAL BILIRUBIN 1.99 mg/dL (0.20-1.00); TOTAL PROTEIN 6.4 g/dL (6.3-8.3)
[2018-11-30] MEDS ORDERED: 1/2 NS 1,000 ML IV SCH (07:45)
[2018-11-30] MEDS: MAXIPIME 2 GM in NS 100 ML IV SCH (08:35)
[2018-11-30] MEDS: LASIX IV SCH ×2 (08:35→20:37)
[2018-11-30] MEDS: LACTULOSE PO SCH ×2 (08:38→20:37)
[2018-11-30] MEDS: XOPENEX NEB INH SCH ×3 (08:45→21:00)
[2018-11-30] MEDS: HALDOL IV PRN ×2 (12:03→20:37)
--- NOTE | 2018-11-30 17:29 | PROGRESS NOTE ---
DATE: 11/30/2018 SUBJECTIVE: Today Ms. Bragg referred to be doing fairly okay. Denies any new complaints. Per the nursing staff, she continues to be remarkably confused, especially at night. OBJECTIVE: On general exam, Ms. Bragg is a 58-year-old female. She is in bed, not in any cardiopulmonary distress. Mucosa is pink and moist. Anicteric, acyanotic. Neck is supple. Respiratory system: Air entry is bilaterally reduced, some crackles posteriorly. Cardiovascular: Regular rate and rhythm. No murmurs, no rubs, no gallops. GI: Abdomen is soft, is distended but nontender. Bowel sounds present. Extremities: Pedal edema 1+. WEATHERIZATION INSTALLER: The patient is awake, alert, interacting. She is oriented to person and to place, but disoriented to time. Musculoskeletal: There is bilateral mastectomy with bilateral breast reconstruction surgery. LABORATORY DATA: CBC is reviewed. No major changes. CMP shows calcium is down to 10.6, AST is 156, ALT is 54. The patient's alpha-1 antitrypsin is actually high. PTH-related peptide is elevated. ASSESSMENT AND PLAN: 1. Altered mental status secondary to toxic-metabolic encephalopathy from hypercalcemia. There is also the thought process it could be related to paraneoplastic syndrome. The patient's mentation, however, seems to be slowly but progressively getting better. We are going to continue addressing the calcium. 2. Malignant hypercalcemia with elevated PTH-related peptide. We think this is related to malignancy. The patient has been given Zometa as well as calcitonin, and she was on adequate intravenous fluids; however, she seems to be retaining so fluids have been discontinued and she is on Lasix. 3. Citrobacter koseri urinary tract infection. The patient is on antibiotics. The patient is on cefepime, but this is very sensitive to almost everything, so we are going to switch to oral cephalexin or once-daily levofloxacin. 4. Left lingular pneumonia, stable. We will continue with antibiotics. 5. Elevated CA 15-3 and CA 27-29, with CT scan showing focal lytic lesion involving the 4th rib and transverse process of the 4th in a patient who has history of breast cancer. I think when we put all this together, there is most likely an occult metastases of her previous breast cancer. Hematology/Oncology is on board and we will defer further workup and management to them on that. 6. MRI findings show a pontomedullary dorsal midline periaqueductal vitale matter hyperintensity on FLAIR, which could indicate Wernicke encephalopathy, demyelinating disease or migraine, but I think it can also reflect some form of paraneoplastic encephalitis, so we would want Neurology to evaluate that and give us further recommendations. In general I think Ms. Bragg is fairly stable. She still remains slightly altered. Calcium is getting better, but she also has a lot of fluid now retaining. Intravenous fluid has been discontinued. We will continue with Lasix and we will change the intravenous antibiotics to p.o. Levaquin and re-evaluate her tomorrow, and go from there. The patient is being seen by Hematology/oncology and Neurology. We will be pending Neurology further evaluation today on Sunday to determine if the patient would benefit from a lumbar puncture. cc: Aden Ridley MD MTDD
[2018-11-30] MEDS: PROTONIX PO SCH (20:37)
--- NOTE | 2018-11-30 22:01 | GASTROENTEROLOGY PROGRESS NOTE ---
DATE: 11/30/2018 SUBJECTIVE: The patient is resting in bed. She is currently sleepy. She has been afebrile today. She had an EGD done yesterday by Dr. Lobo, which showed mild portal hypertensive gastropathy without any signs of active bleeding, and there was a small hiatal hernia. Going through her records, the primary care team is investigating her altered mental status and hyperkalemia, and they are leaning towards possible paraneoplastic syndrome. I did speak to the patient's nurse. The patient is drowsy and did not answer any of my questions. OBJECTIVE: Vital signs: Temperature of 97.8 degrees, pulse of 108, respiratory rate of 24, blood pressure 156/83, saturating 98% on room air. Body weight of 269 pounds. BMI 43.4 kg. Generally the patient is obese, lying in bed, currently sleeping. She was drowsy and did not answer any of my questions. HEENT: Positive pallor. No icterus. Neck is supple. Abdomen is obese, soft. No guarding. Extremities: Mild lower extremity edema. Neurologic: She is drowsy and not answer any questions. LABORATORY DATA: Hemoglobin and hematocrit is 8.3 and 27.9, white count of 13.54, platelet count of 125,000. Sodium 142, potassium 4, chloride 113, bicarbonate 79, anion gap of 12, BUN of 18, creatinine 0.9, glucose of 101, calcium is 10.6, total bilirubin is 1.9, AST 156, ALT 54, alkaline phosphatase 170, total protein 6.4, albumin of 2.4. Her alpha-1 antitrypsin level is 230, which is high. CEA is 142. Her acute hepatitis panel is nonreactive. Her urine culture showed Citrobacter koseri and blood culture is negative 5 days after admission. IMPRESSION AND PLAN: 1. Portal hypertensive gastropathy, likely due to chronic liver disease. I suspect it is likely to be fatty liver disease. We will follow up on the chronic liver disease workup. I will continue to avoid hepatotoxic drugs. 2. Altered mental status, encephalopathy. This is being worked up by primary team. 3. Hypercalcemia. Question of paraneoplastic syndrome, being followed by Dr. Ridley. 4. Elevated liver enzymes, likely secondary to hepatic steatosis. We will follow up on the chronic liver disease workup. 5. Citrobacter koseri urinary tract infection. She is on antibiotics. 6. Left lingular pneumonia. She is on antibiotics. 7. Elevated CA 15-3, CA 27.29 and CEA. Being investigated by Oncology. Dr. Simpson is on board. 8. Gastrointestinal prophylaxis with proton pump inhibitors. 9. Ammonia on 11/26 was normal. We will recheck ammonia tomorrow. Further recommendations pending hospital course. Please call us with any questions. cc: MD Aden Au MD MTDD
[2018-12-01 08:02] LABS: BASO# 0.06 X1000 (0.0-0.2); BASO% 0.5 % (0.0-0.8); EOS# 0.12 X1000 (0.0-0.7); EOS% 1.1 % (0.0-10.0); HEMATOCRIT 27.9 % (37.0-47.0); HEMOGLOBIN 8.3 g/dL (12.0-16.0); IMM GRAN# 0.03 X1000 (0.0-0.04); IMM GRAN% 0.3 % (0.0-0.5); LYMPH# 2.09 X1000 (1.2-3.4); LYMPH% 19.1 % (20.5-51.1); MCH 28.9 PG (27-31); MCHC 29.7 g/dL (33-37); MCV 97.2 FL (81-99); MONO# 2.05 X1000 (0.11-0.59); MONO% 18.8 % (1.7-9.3); MPV 10.7 FL (7.4-10.4); NEUT# 6.57 X1000 (1.4-6.5); NEUT% 60.2 % (42.2-75.2); PLT 126 X1000 (130-400); RBC 2.87 XMIL (4.2-5.4); RDW 19.3 % (11.5-14.5); WBC 10.92 X1000 (4.8-10.8)
[2018-12-01 08:18] LABS: ALB/GLOB RATIO 0.5; ALBUMIN 2.4 g/dL (3.5-5.0); CALCIUM 9.9 mg/dL (8.8-10.2); CREATININE 1.1 mg/dL (0.5-0.9); POTASSIUM 3.8 mmol/L (3.5-5.1); TOTAL BILIRUBIN 2.04 mg/dL (0.20-1.00); TOTAL PROTEIN 7.4 g/dL (6.3-8.3)
[2018-12-01] MEDS: XOPENEX NEB INH SCH ×3 (08:50→21:00)
[2018-12-01] MEDS: LEVAQUIN PO SCH (10:31)
[2018-12-01] MEDS: LASIX IV SCH (10:32)
[2018-12-01] MEDS: LACTULOSE PO SCH ×2 (10:32→20:46)
--- NOTE | 2018-12-01 16:55 | GASTROENTEROLOGY PROGRESS NOTE ---
DATE: 12/01/2018 SUBJECTIVE: Patient is resting in a chair. Her sister is at bedside. She was able to interact better today. Her confusion has improved. OBJECTIVE: Vital signs: Temperature 98 degrees, pulse rate 111, respiratory rate of 17, blood pressure 131/76, saturating 100% room air. Body weight of 269 pounds, BMI 43.4 kg/m2. General Appearance: Obese, sitting in chair, in no acute distress. HEENT: Pale conjunctivae. Mild icterus. Neck: Supple. Abdomen: Obese, soft, nondistended. No guarding. Extremities: No cyanosis, clubbing. Neurologic: She is alert, awake, answers some questions. LABS: Hemoglobin and hematocrit are 8.3 and 27.9, white count of 10.92, platelet count of 126,000. Sodium 142, potassium 3.8, chloride 111, bicarb of 18, anion gap 13, BUN of 27, creatinine 1.1, glucose of 107, calcium 9.9. Total bilirubin is 2.04, AST 152, ALT 56, alkaline phosphatase 181, total protein 7.4, albumin 2.4, ammonia of 65. Alpha-1 antitrypsin level is 230 and Ceruloplasmin level of 37.1. PTH related peptide is 2.5 which is high. Antismooth muscle antibody is negative. Hepatitis panel is nonreactive. IMPRESSION AND PLAN: 1. Portal hypertensive gastropathy was noted on the EGD. This is likely secondary to chronic liver disease, suspected to be fatty liver disease. The patient was recently diagnosed with possible breast cancer per the primary care team. Breast cancer can invade the liver. So at some point, she may need a liver biopsy versus outpatient PET scan to evaluate the liver per the oncology team. In the interim, the patient was counseled to keep on a low-fat diet and low-carbohydrate diet to treat fatty liver disease. 2. Elevated liver enzymes, likely secondary to #1. 3. Citrobacter koseri urinary tract infection. She is on antibiotics. 4. Likely recurrent breast cancer. Dr. Simpson is on board. She has a prior history of breast cancer 3 to 4 years ago, treated at [facility] with mastectomy and chemotherapy. 5. Hypercalcemia. Question of paraneoplastic syndrome. It is coming down. 6. Altered mental status. Encephalopathy is improving. 7. Elevated ammonia. We will keep her on lactulose. 8. Gastrointestinal prophylaxis. PPIs. The above plan was discussed with the patient and family members and all questions were answered. Please call us with any further questions. cc: MD Aden Au MD MTDD
--- NOTE | 2018-12-01 17:12 | GASTROENTEROLOGY CONSULTATION ---
DATE: 12/01/2018 SUBJECTIVE: This morning Ms. Bragg was sitting up in a chair. The sister was sitting at the bedside at the time of the encounter. Ms. Bragg refers to be feeling a lot better but she seems to be hallucinating some. She is seeing some cats under the chair and she thinks that she has seen me in a television. OBJECTIVE: Vitals: Blood pressure is 131/76, pulse 105, respiration 17, temperature is 98 degrees, patient was saturating 100% on room air. General: Ms. Bragg is a 58-year-old female she was sitting up in the chair no distress. Mucosa is pink and moist. Anicteric, acyanotic. Neck: Supple. Chest: Good entry bilateral. Few crackles posteriorly. Cardiovascular: Regular rate and rhythm. No murmurs, no rubs, no gallops. Abdomen: Soft, distended but nontender. Bowel sounds present. Extremities: About 1+ pedal edema. Distal pulses present. 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 She seems to be hallucinating some. Musculoskeletal: The patient has bilateral breast reconstruction surgery . LABS: WBC is 10.92, hemoglobin is 8.8, platelet count of 126,000. Chemistry is also reviewed unremarkable. ASSESSMENT: 1. Altered mental status on presentation secondary to toxic metabolic encephalopathy from likely hypercalcemia. Patient mentation has improved some with normalization of the calcium. 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 2. 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 3. Citrobacter koseri urinary tract infection. Patient is currently on levofloxacin today is day 2 but she has a total of 5 days of antibiotics. 4. Left lingular pneumonia stable. Patient is on antibiotics 5. Elevated CA 15-3 and CA 27-29 associated with lytic lesion involving the 4th rib and the transverse process of the 4th vertebra in a patient who has history of breast cancer. I think this all suggest that patient has recurrence of her breast cancer and will probably need to be treated. Oncology is on board. 6. MRI findings showing a pontomedullary dorsal midline periaqueductal olmstead matter hyperintensity on FLAIR which could indicate Wernicke encephalopathy but patient has never drank in her life, demyelinating disease or migraine. However I think it is a paraneoplastic manifestation. Neurology is on board and we will wait for them to review the patient on that regard. 7. Morbid obesity. Weight loss has been advised. 8. Transaminitis likely due to steatohepatitis. 9. Hepatomegaly with mild splenomegaly noted on imaging associated with medium amount of ascites. GI is on board. cc: Aden Ridley MD
[2018-12-01] MEDS: NS 1,000 ML IV SCH (19:10)
[2018-12-01] MEDS: HALDOL IV PRN (20:46)
[2018-12-01] MEDS: PROTONIX PO SCH (20:47)
[2018-12-02 08:09] LABS: BASO# 0.05 X1000 (0.0-0.2); BASO% 0.5 % (0.0-0.8); EOS# 0.08 X1000 (0.0-0.7); EOS% 0.8 % (0.0-10.0); HEMATOCRIT 27.8 % (37.0-47.0); HEMOGLOBIN 8.3 g/dL (12.0-16.0); IMM GRAN# 0.03 X1000 (0.0-0.04); IMM GRAN% 0.3 % (0.0-0.5); LYMPH# 1.79 X1000 (1.2-3.4); LYMPH% 17.3 % (20.5-51.1); MCH 29.1 PG (27-31); MCHC 29.9 g/dL (33-37); MCV 97.5 FL (81-99); MONO# 2.01 X1000 (0.11-0.59); MONO% 19.5 % (1.7-9.3); MPV 10.9 FL (7.4-10.4); NEUT# 6.37 X1000 (1.4-6.5); NEUT% 61.6 % (42.2-75.2); PLT 124 X1000 (130-400); RBC 2.85 XMIL (4.2-5.4); RDW 19.1 % (11.5-14.5); WBC 10.33 X1000 (4.8-10.8)
[2018-12-02 08:18] LABS: ALB/GLOB RATIO 0.5; ALBUMIN 2.4 g/dL (3.5-5.0); CALCIUM 9.5 mg/dL (8.8-10.2); CREATININE 1.4 mg/dL (0.5-0.9); POTASSIUM 3.6 mmol/L (3.5-5.1); TOTAL BILIRUBIN 2.01 mg/dL (0.20-1.00); TOTAL PROTEIN 7.2 g/dL (6.3-8.3)
[2018-12-02] MEDS: LACTULOSE PO SCH ×2 (10:03→21:06)
[2018-12-02] MEDS: LEVAQUIN PO SCH (10:03)
[2018-12-02] MEDS: HALDOL IV PRN (10:03)
--- NOTE | 2018-12-02 10:09 | GASTROENTEROLOGY PROGRESS NOTE ---
DATE: 12/02/2018 SUBJECTIVE: Patient resting in bed. She is currently sleeping. She denies any new complaints. OBJECTIVE: Vital signs: Temperature 97.7 degrees, pulse of 102, respiratory rate 15, blood pressure 139/67, saturating 100% on 3 L nasal cannula. General Appearance: Obese, lying in bed, in no acute distress. HEENT: Pale conjunctivae. Mild icterus. Neck: Supple. Abdomen: Obese, soft, mild distention noted. No guarding. Extremities: No cyanosis, clubbing. Neurologic: She was sleeping, was able to wake up on commands. Answers the questions. LABORATORIES: Her hemoglobin and hematocrit is 8.3 and 27.8, white count of 10.3, platelet count of 124,000. Sodium 139, potassium 3.6, chloride 109, bicarb of 79, anion gap 12, BUN of 31, creatinine 1.4, glucose of 117, calcium is 9.5, total bilirubin is 2.01, AST 133, ALT 52, alkaline phosphatase 182, total protein 7.2, albumin 2.4. Urine culture 11/19 showed Citrobacter koseri. Repeat culture on 11/25 was negative. IMPRESSION AND PLAN: 1. Altered mental status is improving. She likely had toxic metabolic encephalopathy from hypercalcemia. As her calcium has normalized, her neurological status also improved. There was a question of paraneoplastic syndrome being worked up by the primary care team. 2. Elevated liver enzymes likely secondary to fatty liver disease. We cannot rule out the possibility of any hidden metastasis in the liver. She will benefit from outpatient PET scan or ultrasound-guided liver biopsy for staging if she does get confirmation of malignancy. There is a question about recurrence of breast cancer. The patient has a prior history of breast cancer which was diagnosed 4 years ago. She has elevated tumor markers, CA-15-3 and CA- 27-29 and lytic lesion in the 4th rib and the 4th vertebra. Oncology is on board. 3. MRI of the brain that showed evidence of great matter changes, which is being worked up by Neurology. 4. Obesity. Patient counseled to lose weight. 5. Liver enzymes continue watch for now. Fatty liver. She was counseled to lose weight as an outpatient. 6. Gastrointestinal prophylaxis. Proton pump inhibitors and anemia. Continue to watch for now and transfuse as needed. We will start on Iron C b.i.d. and multivitamin once daily. 7. Further recommendations pending hospital course. cc: Pantera Johnson MD
[2018-12-02] MEDS: XOPENEX NEB INH SCH ×3 (11:20→20:00)
[2018-12-02] MEDS: NS 1,000 ML IV SCH (14:07)
--- NOTE | 2018-12-02 14:09 | PROGRESS NOTE ---
DATE: 12/02/2018 SUBJECTIVE: The patient has continued to have waxing and waning mental status changes. Her sister was at bedside today and provided more history. She states that she was unaware of any preceding cognitive impairment or forgetfulness or memory disturbance. To her knowledge, the onset of symptoms began just 2 weeks prior to admission to [facility]. She does not see her sister often but does speak on the phone with her every couple of days or so and felt that prior to this, she seemed to be completely normal. She had moved in with her mother, however, and her mother was unable to care for her. There were reports of improvement in her mental status in recent days; however, I can tell at the start of my encounter today that her mental status is not normal. There have now been reports of visual hallucinations and I believe auditory as well. Sister is not aware of a prior psychiatric history, though that was reported by the friend and by the patient to me. Reports were bipolar disorder. Sister does say that her father had schizophrenia. There has been recurrence of cancer that has been uncovered since I last saw her. She has elevated tumor markers as well as lytic lesions in the rib and vertebra with a solitary focus of increased uptake at the lateral left fourth rib. Oncology has just evaluated the patient and said there was a palpable lump. OBJECTIVE: She continues afebrile and has been her entire admission. Blood pressure is 136/77, pulse low 100s, respirations 16, saturation 100% on nasal cannula 3 L. Ms. Bragg was sitting up in a chair. She is awake and alert. She is clearly confused during my time at the bedside. Her processing speed is slowed, and at times she cannot finish her sentences. She is not oriented. With clues, she was not able to answer correctly still. Her concentration is diminished. She follows simple commands but not complex commands. Pupils are equal and reactive. Gaze is conjugate. Ocular movements are full in the horizontal plane. Face is symmetric with equal activation. Tongue is midline. Strength is grossly symmetric in the arms and legs. DIAGNOSTIC DATA: White count normalized as of today. Platelets are 124. Her PT was 20.6 with an INR of 1.63 four days ago. Normal sodium. BUN is 31. Creatinine 1.4 which is trending upwards. Blood sugar low 100s. Calcium normalized as of yesterday. AST and ALT are 133 and 52. Ammonia has risen at 65 yesterday. ASSESSMENT AND PLAN: Global encephalopathy. Multifactorial. Given her cancer history and now definite recurrence, I am concerned that there is a relation to this. I would again recommend contrasted MRI of the brain to look for evidence of metastasis there. We can also reevaluate the questionable tiny hyperintense focus that was mentioned in the pontomedullary periaqueductal olmstead matter. If contrasted study does not show obvious abnormality, then the patient would need a lumbar puncture for further evaluation. In addition to typical studies, she would definitely need CSF cytology and flow cytometry and, if possible, CSF paraneoplastic panel. This would likely require a high volume tap. Her encephalopathy may all ultimately be related to the various toxic metabolic disturbances. Encephalopathy often times lags behind normalization of lab values, but I think given her history and current findings, that we should move forward with this further workup mentioned above. cc: Elisabeth Slaughter MD MTDD
--- NOTE | 2018-12-02 15:45 | MAMMOGRAPHY RESULT DOCUMENT ---
DIGITAL BILAT MAMMOGRAM DIAG, US BREAST LIMITED UNILAT-RT 12/02/2018 Right breast ultrasound TECHNIQUE: Computer aided detection imaging was used. COMPARISON: None The breasts are scattered in parenchymal density. There is a subglandular breast implant on the left. FINDINGS: There are multiple surgical clips on the right. There are no dominant masses, grouped microcalcifications, or skin changes to suggest malignancy. Ultrasonography was performed over the palpable abnormality in the upper outer quadrant of the right breast. No discrete cystic or solid lesions are identified no other ultrasonographic abnormalities are present. IMPRESSION: No evidence of malignancy. Advise routine mammographic follow-up. ACR BI-RADS CATEGORY 2: BENIGN FINDING BIRAD2 NOTE: This facility is accredited by the [employer] for Mammography. A mammogram report should not delay biopsy if a dominant or clinically suspicious mass is present. Some cancers are not identified by mammography. Adenosis and dense breasts may obscure any underlying neoplasm. Electronically signed by Rajeev Mcgee 12/02/2018 3:43 PM
--- NOTE | 2018-12-02 17:03 | PROGRESS NOTE ---
DATE: 12/02/2018 SUBJECTIVE: This morning, Ms. Bragg refers to be doing fairly okay. She remains remarkably confused, just like yesterday. OBJECTIVE: Vital Signs: Blood pressure is 136/77, pulse of 105, respirations 20, temperature 97.9 degrees. General: Ms. Bragg is a 58-year-old female. She is in bed. No distress. HEENT: Mucosa is pink and moist. Anicteric. Acyanotic. Neck: Supple. Chest: Good air entry bilateral. There were no crepitations no rhonchi. Cardiovascular: Regular rate and rhythm. No murmurs, no rubs, no gallops. Gastrointestinal: Abdomen is soft, nontender. Bowel sounds present. Extremities: 1+ pedal edema. Central nervous system: Patient is awake, alert, conversational, but she is disoriented to place and to time. Musculoskeletal: There is bilateral mastectomy with breast reconstruction surgery scars. LABORATORY DATA: WBC is 10.33, hemoglobin is 8.3, platelet count of 124,000. Chemistry is also reviewed, creatinine is 1.4. CURRENT MEDICATIONS: Have all been reviewed. ASSESSMENT: 1. Altered mental status secondary to toxic metabolic encephalopathy from hypercalcemia. The patient continues to be confused; however, calcium level has normalized. An initial MRI was somehow pathological so there is a concern that the patient could have a paraneoplastic neurological syndrome. There is a plan to repeat her MRI and also advance with an LP if the MRI is nonconclusive. Neurology is on board. 2. Malignant hypercalcemia on presentation, resolved. 3. Citrobacter koseri urinary tract infection (UTI). The patient has completed treatment with antibiotics. 4. Left lingular pneumonia. The patient has also completed treatment with antibiotics. 5. Elevated CA15.3 and CA27.29 associated with focal lytic lesion involving the 4th rib and transverse process, all concerning for malignancy. Patient has a history of breast cancer, which makes this a high likelihood that she had a recurrence of her breast cancer. Both breast ultrasound and breast mammogram have been done and are negative. We will be waiting on Oncology for further recommendations. 6. Abnormal initial MRI concerning for Wernicke encephalopathy or demyelinating disease or migraine. Neurology has evaluated the patient. There is a recommendation to repeat the MRI and hopefully go ahead with also an LP if the MRI is inconclusive. 7. Hepatomegaly with splenomegaly and ascites concerning for portal hypertension. Gastroenterology is on board. 8. Transaminitis with almost unremarkable serologies. I think this is due to steatohepatitis. Gastroenterology is on board. PLAN: In general, Ms. Bragg is fairly stable has been in the hospital for the past 13 days. Initially presented because of dehydration, altered mentation, and severe hypercalcemia. Workup has revealed that it is malignancy related. The patient has a history of breast cancer status post bilateral mastectomy with breast reconstruction surgery. 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 All of her chemistries have improved; however, she continues to be remarkably confused so there is a concern that she could have a paraneoplastic neurological syndrome from an occult malignancy, presumably from breast cancer. There is a plan to repeat her MRI. If the MRI is inconclusive, Neurology plans to do an LP. DISPOSITION: In terms of disposition, Ms Bragg wants to go home. I spoke with her sister extensively yesterday. There is a plan for Ms. Bragg to go and stay with her mom. cc: Aden Ridley MD MTDD
[2018-12-02] MEDS: ICAR-C PO SCH (21:06)
[2018-12-02] MEDS: PROTONIX PO SCH (21:06)
[2018-12-03 07:31] LABS: BASO# 0.05 X1000 (0.0-0.2); BASO% 0.5 % (0.0-0.8); EOS# 0.08 X1000 (0.0-0.7); EOS% 0.8 % (0.0-10.0); HEMATOCRIT 26.9 % (37.0-47.0); IMM GRAN# 0.03 X1000 (0.0-0.04); IMM GRAN% 0.3 % (0.0-0.5); LYMPH# 2.14 X1000 (1.2-3.4); LYMPH% 22.2 % (20.5-51.1); MCH 28.9 PG (27-31); MCHC 29.7 g/dL (33-37); MCV 97.1 FL (81-99); MONO# 1.87 X1000 (0.11-0.59); MONO% 19.4 % (1.7-9.3); MPV 10.8 FL (7.4-10.4); NEUT# 5.48 X1000 (1.4-6.5); NEUT% 56.8 % (42.2-75.2); PLT 126 X1000 (130-400); RBC 2.77 XMIL (4.2-5.4); WBC 9.65 X1000 (4.8-10.8)
[2018-12-03 07:43] LABS: ALB/GLOB RATIO 0.5; ALBUMIN 2.5 g/dL (3.5-5.0); CALCIUM 8.9 mg/dL (8.8-10.2); CREATININE 1.4 mg/dL (0.5-0.9); POTASSIUM 3.6 mmol/L (3.5-5.1); TOTAL BILIRUBIN 1.9 mg/dL (0.20-1.00); TOTAL PROTEIN 7.6 g/dL (6.3-8.3)
[2018-12-03] MEDS: XOPENEX NEB INH SCH ×3 (08:19→21:30)
[2018-12-03] MEDS: LACTULOSE PO SCH ×2 (09:47→21:08)
[2018-12-03] MEDS: LEVAQUIN PO SCH (09:47)
[2018-12-03] MEDS: CENTRUM SILVER PO SCH (09:47)
[2018-12-03] MEDS: ICAR-C PO SCH ×2 (09:47→21:08)
[2018-12-03] MEDS: NS 1,000 ML IV SCH (11:05)
[2018-12-03] MEDS: TYLENOL PO PRN (11:07)
[2018-12-03] MEDS ORDERED: ATIVAN IV ONE (12:06)
--- NOTE | 2018-12-03 13:18 | PROGRESS NOTE ---
DATE: 12/03/2018 SUBJECTIVE: The patient is dressed in normal clothing and trying to leave. She apparently refused MRI yesterday. She remains confused. OBJECTIVE: Vital signs: She remains afebrile. Blood pressure is 128/62, pulse low 100s, respirations 20, saturation 100% on room air. Ms. Bragg is walking around in the room, though she is not supposed to be. She is dressed in normal clothing, ready to leave. She is not fully oriented. After discussion with her about the importance of continued workup, she is agreeable to stay and says she will cooperate. She is agreeable to MRI if we give her some sedating medication, she says. She is awake and alert. She follows some simple commands. Gaze is conjugate. Ocular movements appear full. Face symmetric with equal activation. Power is grossly symmetric in the arms and legs. She is seen ambulating in the room. DIAGNOSTIC DATA: White count is normal. Platelet count 126,000. Sodium is 135, BUN is 36, creatinine 1.4. AST is 133, ALT is 53, alkaline phosphatase 192. Mammogram bilateral impression no evidence of malignancy. Right breast ultrasound impression no evidence of malignancy. Multiple surgical clips on the right. ASSESSMENT AND PLAN: Remains global encephalopathy, multifactorial. I think it is important to get the contrasted cranial MRI, and I have reordered that. I have also ordered some lorazepam to help calm her for the test. Further recommendations pending the result. Nothing else to add to my note from yesterday. cc: Elisabeth Slaughter MD MTDD
--- NOTE | 2018-12-03 14:03 | PROGRESS NOTE ---
DATE: 12/03/2018 SUBJECTIVE: Ms. Bragg was admitted on 11/19/2018. She came in for altered mentation. Apparently, she had been seen by Dr. Freeman in [place]. I think she had been seen by an oncologist there as well. PAST MEDICAL HISTORY: 1. Diabetes mellitus type 2. 2. Congestive heart failure, but no history of coronary artery disease. 3. Chronic renal failure. On presentation she appeared to be dehydrated, and so we gave her some fluids. 4. Encephalopathy. They thought this could be related to her prerenal azotemia and she had a left lower lobe pneumonia, underlying diabetes. OBJECTIVE: General: Today, she is sitting up in a chair. Family is at the bedside, I think her sister and her mother. Vitals: Temperature 98.2 degrees, pulse 100, respirations 20. Blood pressure 128/76. Eyes: Pupils are equal and round. Lungs: Clear in all lung north. Cardiovascular: Regular rhythm and rate without murmur or S3. LABORATORY: Blood sugar 112, 116, 169, 139. LABORATORY: Review of laboratory from yesterday, white count 9650, hematocrit is 26, hemoglobin 8, platelet count is 126,000. Sodium 135, potassium 3.6, chloride 104, BUN 36, creatinine 1.4. ALT is 192, AST was 53. ASSESSMENT AND PLAN: 1. Altered mental status, likely secondary to metabolic encephalopathy from hypercalcemia and dehydration. 2. Clinical volume depletion, continuing her hydration. 3. Malignant hypercalcemia. Her parathyroid hormone was low, which will mean that it is nonparathyroid hormone related. 4. She has a history of breast cancer. CT scan of the chest shows lytic lesions on the bone suggesting malignant cause of hypercalcemia. The CEA was extremely elevated concerning for colon, but also possibility of recurrence of breast cancer. So, continue present hydration. I gave her zoledronic acid together with calcitonin and Oncology is helping. 5. Transaminitis, probably related to steatohepatitis. 6. Elevated CEA level. CT scan of the abdomen and pelvis did not reveal any mass. Gastroenterology is consulted. 7. Suspect pneumonia. Continue present antibiotics. 8. Citrobacter koseri urinary tract infection. She has finished a course of antibiotic. So, fluids are going at 150 mL an hour and zoledronic acid as well as calcitonin. Follow her electrolytes. 9. Her discharge situation, she does not have a place to go at this point. She was living with her mother for a couple of weeks, but her mother cannot take care of her. She does not have a home I do not believe at this present time, so we will discuss with social workers. cc: Michael Singh MD
--- NOTE | 2018-12-03 15:36 | Diag Imaging Result Doc PS360 ---
EXAM: MRI BRAIN W/WO CONTRAST - 12/03/2018 HISTORY: AMS, cancer hx TECHNIQUE: MRI brain without and with contrast. Images are obtained prior to and following gadolinium administration. COMPARISON: 11/25/2018 FINDINGS: There are artifacts from motion which limit detail. There is no evidence of intracranial hemorrhage, mass effect, midline shift, or hydrocephalus. There are no acute signal changes identified. The diffusion weighted images show no areas of restricted diffusion (no evidence of acute infarct). There is no abnormal enhancement identified. IMPRESSION: Motion artifacts which limit detail. No visible acute intracranial abnormality. No indication of metastatic disease in the brain. Electronically signed by Daniel Gustafson 12/03/2018 3:33 PM
--- NOTE | 2018-12-03 16:26 | HEMO/ONC CONSULTATION ---
DATE: 12/02/2018 ADMITTING PHYSICIAN: Juan Diego Tapia MD REQUESTING PHYSICIAN: Juan Diego Tapia MD. We appreciate this consult. CHIEF COMPLAINT: Malignant hypercalcemia. HISTORY OF PRESENT ILLNESS: Ms Bragg is a pleasant 58-year-old female, with past medical history of diabetes mellitus type 2, congestive heart failure, chronic renal failure, breast cancer, and non-Hodgkin's lymphoma. The patient presented to [facility] Emergency Department accompanied by family members, as she had been very confused and disoriented. The patient apparently is living with her mother at this time, but there is no record of her recent medication. On presentation to [facility], the patient was noted to be in acute renal failure with leukocytosis, elevated blood sugars, and elevated liver enzymes. The patient's family member reported that she had a recent pneumonia as well as a urinary tract infection. Upon presentation, the patient's calcium level was noted to be significantly elevated for which we are consulted. PAST MEDICAL HISTORY: 1. Hypertension. 2. Diabetes mellitus, type 2. 3. Bipolar disorder. 4. Morbid obesity. 5. Breast cancer status post left mastectomy. 6. Non-Hodgkin's lymphoma status post chemotherapy. FAMILY HISTORY: Negative for any hematologic or oncologic disease. SOCIAL HISTORY: The patient is currently living with her mother. She apparently does not use tobacco, alcohol, or illicit drugs. MEDICATIONS ON ADMISSION: Unknown except for lorazepam, cefepime, and Haldol. ALLERGIES: Patient has no known drug allergies. REVIEW OF SYSTEMS: A 14 point review of systems was attempted but is difficult to be obtained at this time as the patient is considerably confused. PHYSICAL EXAMINATION: General: Ms. Bragg is a 58-year-old female, who is significantly confused, but in no acute distress. Vital Signs: Temperature 97.7 degrees, blood pressure 139/67, heart rate 102, respirations 15, O2 saturation 100% on room air. HEENT: Normocephalic, atraumatic. Mucous membranes pale and moist. Sclerae anicteric. Extraocular movements intact. Neck: Supple. Lungs: Clear to auscultation bilaterally. Chest expansion is equal bilaterally. Cardiovascular: S1, S2 is heard. No murmurs, rubs, or gallops. Abdomen: Nondistended. Extremities: No clubbing, cyanosis. She does have trace bilateral lower extremity edema. Dermatologic: No rashes, bruises, or lesions. Neurologic: The patient is awake. She is alert. She is oriented to name only. She has no overt focal deficits. LABORATORY DATA: Hemoglobin 8.3, hematocrit 27.8, white blood cell count 10.33, platelets 124,000. On December 01, calcium was 9.9, decreased from previous level at 10.9. IMAGING STUDIES: Bone scan reveals lateral left 4th rib uptake. ASSESSMENT AND PLAN: 1. Malignant hypercalcemia at this time. Calcium has normalized. Elevated calcium likely due to lytic lesions. We will continue to monitor. 2. Metabolic encephalopathy of questionable etiology. Confusion persists at this time. Neurology is following. MRI contrasted has been ordered. 3. Urinary tract infection. Currently on antibiotics. 4. Elevated CA15.3 and CA27.29 with 4th rib and vertebrae lytic lesions. Patient does have a history of breast cancer status post left mastectomy. Questionable recurrence at this time. Additionally, the patient has a history of non-Hodgkin's lymphoma with treatment with chemotherapy in the past. We will attempt to obtain records and proceed thereafter. Additionally, we will attempt biopsy of the bone at this time. 5. Transaminitis, hepatomegaly. Gastroenterology has been consulted and is following. We will follow along with you and make further recommendations pending outcomes. The above reflects the history, exam, assessment, and plan of Dr. Simpson. Dictated by ARPAN Donahue for Joe Simpson MD cc: ARPAN Donahue MD
[2018-12-03] MEDS: PROTONIX PO SCH (21:08)
--- NOTE | 2018-12-03 21:34 | PROVIDER PROGRESS NOTE ---
Progress Note - - 12/03/2018 SUBJECTIVE: No acute overnight events. Afebrile. No vomiting. Patient continues to have confusion despite empiric lactulose therapy and correction of hypercalcemia. Oncology consulted for evaluation of possible paraneoplastic process. No abdominal pain. OBJECTIVE Last Vital Signs Temp 97.5 F L 12/03/18 20:47 Pulse 100 H 12/03/18 20:47 Resp 20 12/03/18 20:47 BP 126/69 12/03/18 20:47 Pulse Ox 100 12/03/18 20:47 Height 5 ft 6 in Weight 269 lb GEN: sleepy, arousable, NAD HEENT: anicteric, MMM NECK: supple, no jvd PULM: CTAB, no wheezing CV: RRR, no murmurs ABD: obese, soft NT/ND, NABS EXT: 1-2+ LE edema NEURO: confused, moving all extremities symmetrically LABS 12/01/18 12/03/18 12/03/18 07:12 06:55 06:55 WBC 9.65 Hgb 8.0 L Plt Count 126 L Sodium 135 L Potassium 3.6 Chloride 104 Carbon Dioxide 17 L Anion Gap 14 BUN 36 H Creatinine 1.4 H Total Bilirubin 1.90 H AST 133 H ALT 53 H Alkaline Phosphatase 192 H Ammonia 65 H Total Protein 7.6 Albumin 2.5 L A/P: Ms. Sri Bragg is a 58-year-old woman with history of breast cancer and non-Hodgkin's lymphoma presented with AMS found to have found to have possible pneumonia and urinary tract infection as well as ZAHEER, hypercalcemia, elevated LFTs, anemia and elevated tumor markers. GI consulted for abnormal LFTs. Chronic liver disease workup was negative. LFTs have remained stable. Suspect etiology is NAFLD. Patient had elevated ammonia; empiric lactulose therapy did not improve AMS. She does not appear to have hepatic encephalopathy. Neurology is following for AMS. Oncology consulted to evaluate for occult malignancy. Patient has lytic rib lesion seen on PET scan. Workup pending. # Abnormal LFTs: likely 2/2 to NAFLD; chronic liver disease workup negative; will stop lactulose given lack of response to therapy; check LFTs every 2-3 days # AMS: unclear etiology; suspected paraneoplastic process given elevated tumor markers; defer workup to oncology # UTI/PNA: on abx per primary team # Hypercalcemia: resolved # Metabolic acidosis: unclear etiology; ?diarrhea; stopped lactulose # ZAHEER: Cr 1.4 # Portal hypertensive gastropathy on EGD: on PPI # Anemia: no overt GI bleeding # Lytic rib lesion: workup per oncology Will sign off. Please call with questions or concerns
[2018-12-04] MEDS: XOPENEX NEB INH SCH ×3 (07:44→22:00)
[2018-12-04] MEDS: CENTRUM SILVER PO SCH (10:02)
[2018-12-04] MEDS: LEVAQUIN PO SCH (10:02)
--- NOTE | 2018-12-04 14:53 | PROGRESS NOTE ---
DATE: 12/04/2018 SUBJECTIVE: Ms. Bragg has had reported fluctuation in level of attention and confusion. EEG 11/25/2018 showed some generalized slowing and triphasic waves, but no epileptiform discharge. Brain MRI yesterday done with and without contrast was unremarkable and specifically showed no evidence of metastatic disease. OBJECTIVE: She has been afebrile. WBC count is down to 9650. Platelet count is borderline at 126,000. PT 20.6, INR 1.65 on 11/28/2018, both slightly worse than on 11/19/2018. PTT 49.9 on 11/19/2018. IMPRESSION AND PLAN: She has documented metastatic breast cancer. There is also remote history of lymphoma. 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 We need to consider checking spinal fluid. I am reluctant to proceed with LP now in light of her size, borderline platelet count, abnormal clotting factors last checked 6 days ago. I will order repeat PT and PTT and follow clinically. We might consider asking Radiology to perform LP with fluoroscopic guidance in order to minimize the risk for bleeding complications. Thanks for asking Neurology to see Ms. Bragg. cc: MD FRANKIE Hanson III
[2018-12-04 15:13] LABS: INR 1.71; PROTIME 21.4 Seconds (11.0-16.0)
[2018-12-04] MEDS: LASIX IV ONE (19:55)
[2018-12-04] MEDS: PROTONIX PO SCH (22:48)
[2018-12-05 07:02] LABS: BASO# 0.06 X1000 (0.0-0.2); BASO% 0.6 % (0.0-0.8); EOS# 0.07 X1000 (0.0-0.7); EOS% 0.7 % (0.0-10.0); HEMATOCRIT 26.3 % (37.0-47.0); HEMOGLOBIN 8.1 g/dL (12.0-16.0); IMM GRAN# 0.03 X1000 (0.0-0.04); IMM GRAN% 0.3 % (0.0-0.5); LYMPH# 2.27 X1000 (1.2-3.4); LYMPH% 23.5 % (20.5-51.1); MCH 29.3 PG (27-31); MCHC 30.8 g/dL (33-37); MCV 95.3 FL (81-99); MONO# 2.02 X1000 (0.11-0.59); MPV 10.1 FL (7.4-10.4); NEUT# 5.19 X1000 (1.4-6.5); NEUT% 53.9 % (42.2-75.2); PLT 114 X1000 (130-400); RBC 2.76 XMIL (4.2-5.4); RDW 19.3 % (11.5-14.5); WBC 9.64 X1000 (4.8-10.8)
--- NOTE | 2018-12-05 07:16 | Diag Imaging Result Doc PS360 ---
EXAM: CHEST-PORTABLE INDICATION: sob TECHNIQUE: One view COMPARISON: 11/24/2018 FINDINGS: Right chest port tip is in stable position. There has been interval placement of a PICC line. The tip projects over the lower SVC in the expected position. Inspiration is suboptimal. The lungs are grossly clear. There is no discrete pleural fluid collection or pneumothorax. Central vasculature is somewhat prominent suggesting mild pulmonary venous congestion. Cardiac silhouette is borderline prominent. IMPRESSION: Suggestion of mild pulmonary venous congestion. Electronically signed by Eric Holland 12/05/2018 7:14 AM
[2018-12-05 07:25] LABS: ALB/GLOB RATIO 0.5; ALBUMIN 2.5 g/dL (3.5-5.0); CALCIUM 9.2 mg/dL (8.8-10.2); CREATININE 1.3 mg/dL (0.5-0.9); PHOSPHORUS 1.6 mg/dL (2.7-4.5); POTASSIUM 3.8 mmol/L (3.5-5.1); TOTAL BILIRUBIN 1.87 mg/dL (0.20-1.00); TOTAL PROTEIN 7.3 g/dL (6.3-8.3)
[2018-12-05 07:59] LABS: FREE T4 1.09 ng/dL (0.93-1.70); TSH 9.98 uIUmL (0.27-4.20)
[2018-12-05] MEDS: XOPENEX NEB INH SCH ×3 (08:20→19:16)
[2018-12-05] MEDS: LEVAQUIN PO SCH (09:40)
[2018-12-05] MEDS: CENTRUM SILVER PO SCH (09:40)
--- NOTE | 2018-12-05 11:13 | PROGRESS NOTE ---
DATE: 12/05/2018 Ms. Bragg seems a little bit brighter today. She answered some questions more briskly but still had some nonsense answers. For example, she replied "pastrami" when I asked her to name the hospital. She did well with bedside naming objects but had trouble naming parts of objects. She was inconsistent with following commands requiring right/left distinction and digit distinction. She counted fingers in the left visual field more consistently than on the right, but did count fingers correctly in the right visual field. Overall, all of her neurologic exam is inconsistent and seems to be related to her fluctuating level of attention. She does have some bruising across the arms. Lab shows platelet count down to 114,000. PT is 21.4 and INR 1.71, both slightly worse than when last checked. Medicines contain Levaquin which can be associated with seizure and delirium, sometimes even alia psychosis but I believe she had altered mentation prior to adding Levaquin. I do not see anything else on her medication list that likely would be contributing to inconsistent or fluctuating encephalopathy. I am going to order repeat of her EEG to see if there is anything changed compared to the 11/25/2018 record. CSF would be interesting but, as outlined yesterday, I am reluctant to attempt LP in light of her clotting factors, and her size and fluctuating attention which may make LP more difficult and raise risk of bleeding complication, Thanks for asking neurology to see Ms. Bragg. cc: MD FRANKIE Hanson III
[2018-12-05] MEDS: PROTONIX PO SCH (22:12)
[2018-12-06] MEDS: XOPENEX NEB INH SCH ×3 (09:25→21:20)
[2018-12-06] MEDS: CENTRUM SILVER PO SCH (09:40)
[2018-12-06] MEDS: LEVAQUIN PO SCH (09:40)
--- NOTE | 2018-12-06 10:25 | PROGRESS NOTE ---
DATE: 12/06/2018 Ms. Bragg is awake and alert this morning. She seemed a little bit more appropriate, answering questions more consistently and more quickly. She asked me about going home. Her EEG shows some generalized slowing, but no definite focal slowing and no epileptiform discharge. I do not have any new thoughts from Neurology standpoint. Still would like to see CSF, but risk of bleeding complication with LP remains significant. She seemed more attentive today, and that would give me a little bit more confidence that she might cooperate with LP. Will recheck Sunday. Thanks for asking Neurology to see Ms. Bragg. cc: MD FRANKIE Hanson III
[2018-12-06] MEDS ORDERED: ATIVAN IV ONE (14:17)
--- NOTE | 2018-12-06 14:36 | PROGRESS NOTE ---
DATE: 12/06/2018 Ms. Bragg was sitting up. She had a friend visiting her. She seemed to be in no distress, comfortable, oriented, and knows she is in the hospital. Temp 97.5 degrees, pulse 109, respirations 18, blood pressure 138/56. Pupils are equal and round. No distended neck veins. Lungs are clear in all lung north. Cardiovascular examination regular rhythm and rate without murmur or S3. Looking at her calcium on the , calcium down to 9.2. Renal function creatinine was 1.3 and creatinine had gone up to 1.4. ASSESSMENT AND PLAN: 1. Dr. Esteves would like to look at the CSF. He was wondering about the risk of bleeding. The EEG showed some generalized slowing, but no definite focal slowing or epileptiform discharge. From neurologic standpoint, presented with global encephalopathy, multifactorial. Multiple metabolic derangements and main one was her hypercalcemia, possible infection, possible urinary tract infection. She seems to have improved and her calcium has come down. 2. Elevated liver enzymes, chronic liver disease workup in place. She does have morbid obesity and suspect fatty liver or steatohepatitis may be the main component. 3. Morbid obesity. 4. Elevated calcium with elevated CEA and she may benefit from an EGD and colonoscopy, so this was performed on 11/29/2018, small hiatal hernia, mild portal hypertension, and gastropathy suggestive of portal hypertension consistent with chronic liver disease. Normal duodenum. No findings to explain elevated CEA. 5. Citrobacter grown out of the urine and treated with current antibiotics. 6. Malignant hypercalcemia is what is suspected. She has an elevated CA-15-3, elevated CA-27-29 associated with lytic lesion in the 4th rib and transverse process in the 4th vertebrae with a distant history of breast cancer and the suggestion is that she could have recurrence of breast cancer. Oncology is following. She had a breast ultrasound done. No evidence of malignancy. Bilateral mammograms. No evidence of malignancy. MRI of the head showed no indication of metastatic disease. Chest x-ray from yesterday suggested mild pulmonary venous congestion. Dr. Khoury would like to pursue a contrasted cranial MRI so we might pursue that. They thought this is malignant hypercalcemia. Calcium has normalized. She has global encephalopathy which seems to be multifactorial. They did ask for a contrast MRI, so we will see if we can obtain that. Renal function looks good and she has a history of breast cancer. She has 4th rib and vertebral lytic lesions and they may pursue a bone biopsy. cc: Michael Singh MD
--- NOTE | 2018-12-06 15:37 | Diag Imaging Result Doc PS360 ---
EXAM: MRI BRAIN W/WO CONTRAST 12/06/2018 HISTORY: confusion, global encephelopathy TECHNIQUE: T1 sagittal, axial and post gadolinium-enhanced axial with coronal reformation, T2, FLAIR, DWI axial, coronal gradient echo. COMMENT: Many of the images are degraded by patient motion. In some cases this is better than on the previous study of 12/03/2018 however. There is no evidence of mass effect, bleed, or abnormal extra-axial fluid collection. There is no evidence of restricted diffusion. There is no evidence of abnormal gadolinium enhancement. IMPRESSION: No evidence of acute intracranial disease. Electronically signed by Rajeev Mcgee 12/06/2018 3:35 PM
[2018-12-06] MEDS: PROTONIX PO SCH ×2 (19:55→21:46)
[2018-12-07] MEDS: HALDOL IV PRN (03:14)
[2018-12-07 06:19] LABS: BASO# 0.05 X1000 (0.0-0.2); BASO% 0.5 % (0.0-0.8); EOS# 0.07 X1000 (0.0-0.7); EOS% 0.7 % (0.0-10.0); HEMATOCRIT 27.2 % (37.0-47.0); HEMOGLOBIN 8.3 g/dL (12.0-16.0); IMM GRAN# 0.03 X1000 (0.0-0.04); IMM GRAN% 0.3 % (0.0-0.5); LYMPH% 22.7 % (20.5-51.1); MCH 29.2 PG (27-31); MCHC 30.5 g/dL (33-37); MCV 95.8 FL (81-99); MONO# 2.02 X1000 (0.11-0.59); MONO% 20.8 % (1.7-9.3); MPV 9.9 FL (7.4-10.4); NEUT# 5.32 X1000 (1.4-6.5); PLT 108 X1000 (130-400); RBC 2.84 XMIL (4.2-5.4); RDW 19.7 % (11.5-14.5); WBC 9.69 X1000 (4.8-10.8)
[2018-12-07 06:45] LABS: ALB/GLOB RATIO 0.5; ALBUMIN 2.4 g/dL (3.5-5.0); MAGNESIUM 1.7 mg/dL (1.5-2.7); POTASSIUM 4.2 mmol/L (3.5-5.1); TOTAL BILIRUBIN 1.96 mg/dL (0.20-1.00)
[2018-12-07 07:03] LABS: BANDS 18 % (0-1); LYMPHS 10 % (21-51); SEGS 72 % (42-75)
[2018-12-07] MEDS: LEVAQUIN PO SCH (08:57)
[2018-12-07] MEDS: CENTRUM SILVER PO SCH (08:57)
[2018-12-07] MEDS ORDERED: LASIX IV ONE (10:48)
[2018-12-07] MEDS: XOPENEX NEB INH SCH ×3 (11:05→22:35)
--- NOTE | 2018-12-07 11:07 | PROGRESS NOTE ---
DATE: 12/07/2018 SUBJECTIVE: Ms. Bragg is awake but she is having some wheezing, lethargic at the present time, got sleepy. She has not been wheezing wearing her nasal cannula. She was a little lethargic, but she does remember the month. I am not sure she remembered the year or the place. OBJECTIVE: Vital signs: She remains afebrile, temperature 96.3 degrees, pulse 100, respirations 18, blood pressure 132/77. HEENT: Pupils are equal. Neck: No distended neck veins. Lungs: Clear. She does have expiratory wheezing throughout. Cardiovascular: Regular rhythm and rate without murmur or S3. Abdomen: Soft. Skin: Warm and dry. LABORATORY DATA: Review of lab from today. Sodium 141, potassium 4.2, chloride 110, BUN 35, creatinine 1.0. Blood sugars have been 171, 123, 102. Total bilirubin is 1.96, AST is 126, ALT is 47, alkaline phos 178. ASSESSMENT: 1. Malignant hypercalcemia suspected. Calcium has normalized. Elevated calcium probably from lytic lesions in her bones. 2. Metabolic encephalopathy. This seems to have improved a little bit, although she still has confusion and is pretty lethargic. We did do an MRI with contrast, did not find any intracranial pathology or no sign of metastatic disease. 3. Urinary tract infection. Treated with antibiotics. 4. Elevated CA-15-3, CA-27-29, 4th rib vertebra with lytic lesion. The patient has a history of breast cancer and is status post left mastectomy, and questionable recurrence at this time. She also has a history of non-Hodgkin's lymphoma, which has been treated with chemotherapy in the past. Oncology is following. Obtain records. I am not sure if we are going to have to get a tissue diagnosis. 5. Transaminitis, hepatomegaly, and she has fatty liver disease. LABORATORY DATA: Review of her lab. Electrolytes look good. Ammonia level was 94 so she may still have some hepatic encephalopathy as well with this. PLAN: I am going to put her on lactulose 30 mL twice a day to see if this will help. Her calcium is down to normal range. Really not getting anything else to sedate her, so we will try and put her on some lactulose. Her fluids are off, I will give her a dose of Lasix and will give her some nebulized breathing treatment. Maybe start steroid inhaler as well. cc: Michael Singh MD
[2018-12-07] MEDS: XIFAXAN PO SCH ×2 (11:27→20:52)
[2018-12-07] MEDS: DUONEB (A & A) INH SCH ×4 (11:28→22:47)
[2018-12-07] MEDS: ADVAIR 250/50 DISKUS INH SCH (19:52)
[2018-12-07] MEDS: PROTONIX PO SCH (20:52)
[2018-12-07] MEDS: LACTULOSE PO SCH (20:52)
[2018-12-08] MEDS: DUONEB (A & A) INH SCH ×5 (07:52→23:38)
[2018-12-08] MEDS: ADVAIR 250/50 DISKUS INH SCH ×2 (07:55→19:46)
[2018-12-08] MEDS: LACTULOSE PO SCH ×2 (09:17→20:02)
[2018-12-08] MEDS: XIFAXAN PO SCH ×2 (09:17→20:02)
[2018-12-08] MEDS: LEVAQUIN PO SCH (09:17)
[2018-12-08] MEDS: CENTRUM SILVER PO SCH (09:17)
[2018-12-08] MEDS: XOPENEX NEB INH SCH ×3 (11:43→19:46)
--- NOTE | 2018-12-08 13:07 | PROGRESS NOTE ---
DATE: 12/08/2018 SUBJECTIVE: Ms. Bragg was resting. She says she is comfortable. No complaints. She is oriented to being in the hospital. OBJECTIVE: Vital Signs: She has remained afebrile at 97.9 degrees, pulse 111, respirations 18, blood pressure 97/48. HEENT: Pupils are equal. Lungs: Clear in all lung north. Abdomen: Soft. Skin: Warm and dry. LABORATORY STUDIES: Blood sugar 173, 129, 131. ASSESSMENT AND PLAN: 1. Malignant hypercalcemia. She has an elevated CA-15-3, CA-27-29, 4th vertebrae with lytic lesion, suspect this is hypercalcemia from cancer or metastatic disease but she is status post left mastectomy and has questionable recurrence at this time. She has also got a distant history of non-Hodgkin's lymphoma which was treated with chemotherapy in the past. 2. Transaminitis. Aware. Liver enzymes seem to be stable and going down. AST is 47, ALT is 173. I did check another ammonia level, it was 104, so it seems little better. Her confusion is down a little bit. I did start her on some lactulose and rifaximin. We will continue this for now. cc: Michael Singh MD MTDD
[2018-12-08] MEDS: HALDOL IV PRN (20:02)
[2018-12-08] MEDS: PROTONIX PO SCH (20:02)
[2018-12-09] MEDS: DUONEB (A & A) INH SCH ×5 (07:28→23:59)
[2018-12-09] MEDS: ADVAIR 250/50 DISKUS INH SCH ×2 (07:28→20:25)
[2018-12-09] MEDS: CENTRUM SILVER PO SCH (08:34)
[2018-12-09] MEDS: LEVAQUIN PO SCH (08:34)
[2018-12-09] MEDS: XIFAXAN PO SCH ×2 (08:34→23:41)
[2018-12-09] MEDS: LACTULOSE PO SCH ×2 (08:34→23:41)
[2018-12-09] MEDS: XOPENEX NEB INH SCH ×3 (11:31→23:59)
--- NOTE | 2018-12-09 17:00 | PROGRESS NOTE ---
DATE: 12/09/2018 SUBJECTIVE: No major overnight events. The patient had repeat MRI with and without contrast that again did not show any acute findings. Specifically, no evidence of abnormal contrast enhancement to suggest metastatic disease. She remains afebrile with blood pressure 110/70, pulse 114, respirations 19, and 99% on room air. Ms. Bragg is lying on her left side. The covers are thrown onto the floor. She is awake and alert. She is spontaneous and has conversation. She is oriented to location and year but not otherwise. She does not know why she is in the hospital. She expresses wishes to go home, and asks me to help her get out of the bed. She does remain confused. She answers many questions appropriately, but appropriate answers are intermixed with inappropriate ones. There may be some delusions and she at times misinterprets visual information. She does follow simple commands consistently. No language disturbance. No dysarthria. She is moving her extremities equally. No meningismus. DIAGNOSTICS AND LABORATORY: MRI of the brain with and without contrast was personally reviewed. No acute findings. White count is normal. Sodium normal. BUN and creatinine 35 and 1.0. AST and ALT 126 and 47. Ammonia has been rising; yesterday was 104. ASSESSMENT AND PLAN: Global encephalopathy of uncertain etiology. This could potentially be explained by her abnormal liver function tests and hyperammonemia, but given the concern for cancer recurrence in this patient, we need to evaluate for neoplastic or paraneoplastic GRIDDLE ATTENDANT processes. Additionally, fungal infection would be a consideration. Lastly, cannot exclude the possibility of psychiatric illness, especially since there was report of psychiatric illness in the past. Contrasted MRI did not show evidence of metastatic disease. Unfortunately, her coagulation studies continue to be abnormal, and in fact have risen since she has been hospitalized. That together with her worsening thrombocytopenia and her body habitus increase the risk for bleeding complications. I would agree that fluoroscopic guidance to minimize the risk of bleeding complications would be beneficial in this patient. Ideally, the coagulopathy should be reversed. As stated previously, I recommend a large volume tap with fungal culture, HSV, cytology, flow cytometry, and CSF paraneoplastic panel, plus gram stain, culture, protein, glucose. Further studies if we have remaining fluid. cc: Elisabeth Slaughter MD [facility] PS[facility] CENTERAdilia
--- NOTE | 2018-12-09 17:45 | PROGRESS NOTE ---
DATE: 12/09/2018 SUBJECTIVE: Ms. Bragg is sitting up in a chair. She is doing better. She still is not sure where she is or the year or the month. She usually does get the month right. OBJECTIVE: Vital Signs: Her remains afebrile at 97.8 degrees, pulse 114, respirations 16, blood pressure 137/107. Blood pressures have ranged between 108 to 141 over 51 to 107. Lungs: Clear in all lung north. Cardiovascular: Regular rhythm and rate without murmur or S3. Abdomen: Soft. Skin: Warm and dry. LABORATORY STUDIES: Urine output was over 600 mL, not sure we recorded all the urine. ASSESSMENT: 1. Global encephalopathy of uncertain etiology, potentially explained by her abnormal liver functions and hyperammonemia but there is concern for cancer recurrence. 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 Her calcium has come down. The electrolytes look better. Contrast MRI did not show any evidence of metastatic disease. Her coagulation studies continue to be abnormal and ammonia level high. I started her on lactulose and rifaximin. She has worsening of her thrombocytopenia. Neurology has recommended a spinal tap when we were able for cytology, flow cytometry, CSF, paraneoplastic panel in addition to maybe some visual studies. 2. Suspicion for malignant hypercalcemia, suspicion for recurrent cancer. Her markers of CA-15-3 and CA-27-29 are high. Her 4th vertebrae with a lytic lesion. She has transaminitis. She has elevated ammonia level. Last ammonia level 104. 3. Diabetes mellitus, type 2. Sugars under good control. DISCHARGE PLANS: I am not sure she has a place to go. She talks that her mother is going to give her a house, but she cannot go home like this. She is still not oriented and we need to make a plan for her treatment. Likewise going to rehab I do not think is an option at this point. She needs to be better neurologically. We will recheck her electrolytes and ammonia level again in the morning. Note that her platelet count was 108,000. I believe she would tolerate a spinal tap if that is what we decide and will ask for Oncology to continue to give us some guidance. cc: Michael Singh MD
[2018-12-09] MEDS: PROTONIX PO SCH (23:41)
[2018-12-10 08:23] LABS: BASO# 0.01 X1000 (0.0-0.2); BASO% 0.1 % (0.0-0.8); HEMOGLOBIN 9.6 g/dL (12.0-16.0); IMM GRAN# 0.03 X1000 (0.0-0.04); IMM GRAN% 0.3 % (0.0-0.5); LYMPH# 1.67 X1000 (1.2-3.4); LYMPH% 16.8 % (20.5-51.1); MCV 96.9 FL (81-99); MONO# 1.64 X1000 (0.11-0.59); MONO% 16.5 % (1.7-9.3); MPV 10.2 FL (7.4-10.4); NEUT# 6.58 X1000 (1.4-6.5); NEUT% 66.3 % (42.2-75.2); PLT 107 X1000 (130-400); RDW 19.8 % (11.5-14.5); WBC 9.93 X1000 (4.8-10.8)
[2018-12-10 08:38] LABS: INR 1.88
[2018-12-10 08:43] LABS: ALB/GLOB RATIO 0.5; ALBUMIN 2.5 g/dL (3.5-5.0); CALCIUM 8.8 mg/dL (8.8-10.2); CREATININE 2.1 mg/dL (0.5-0.9); POTASSIUM 4.7 mmol/L (3.5-5.1); TOTAL BILIRUBIN 2.76 mg/dL (0.20-1.00); TOTAL PROTEIN 7.2 g/dL (6.3-8.3)
[2018-12-10] MEDS: CENTRUM SILVER PO SCH (08:45)
[2018-12-10] MEDS: LACTULOSE PO SCH ×2 (08:45→18:40)
[2018-12-10] MEDS: XIFAXAN PO SCH ×2 (08:46→23:43)
[2018-12-10] MEDS: LEVAQUIN PO SCH (08:46)
[2018-12-10] MEDS: NS 1,000 ML IV SCH ×2 (10:22→23:39)
[2018-12-10] MEDS: DUONEB (A & A) INH SCH ×4 (11:10→20:02)
[2018-12-10] MEDS: XOPENEX NEB INH SCH ×2 (11:10→20:02)
[2018-12-10] MEDS: ADVAIR 250/50 DISKUS INH SCH ×2 (11:10→20:02)
--- NOTE | 2018-12-10 13:23 | PROGRESS NOTE ---
DATE: 12/10/2018 INTERVAL HISTORY: The patient is awake, alert, and cooperative but remains quite confused. She is oriented to person only. No new complaints, but the patient's responses were only intermittently appropriate so uncertain of how much of my questions she understood. No acute events overnight. REVIEW OF SYSTEMS: A 12 point Review of Systems is negative except as per interval history. LABORATORY: WBC 9.9, hemoglobin 9.6, hematocrit 31, and platelets 107,000, PT 23, and INR 1.8. Sodium 131, potassium 4.7, BUN 43, creatinine 2.1, glucose, 166, bilirubin 2.7, AST 154, ALT 53, alk phos 202, ammonia 61, and albumin 2.5. VITAL SIGNS: T-max 98.4 degrees, pulse 108, respirations 19, blood pressure 129/71 with 02 sat 100% on 2 L via nasal cannula. PHYSICAL EXAMINATION: General: No acute distress. Obese. Vitals: As above. HEENT: Normocephalic, atraumatic. Slightly dry mucous membranes. No cervical adenopathy. Cardiovascular: Minimally tachycardic but regular. No murmurs noted. Pulmonary: Clear to auscultation within the limits of body habitus. No wheezing, rales or rhonchi noted. Abdomen: Soft, nontender. Nondistended. Bowel sounds positive. Extremities: Peripheral pulses decreased but intact. 3+ edema bilaterally. Neurologic: Exam somewhat limited by patient's mental status, but cranial nerves appear intact and no focal deficits identified. Psychiatric: Normal mood. Odd affect. Awake, alert, but, oriented to person only. ASSESSMENT AND PLAN: 1. Metabolic encephalopathy, most likely related to patient's liver dysfunction, but there is some concern for paraneoplastic syndrome. Attempting to get patient set up for LP. INR remains elevated, so giving 2 units of FFP to try to get her INR down to a level where she can have the LP. Oncology also recommending fungal cultures when LP can be obtained. Suspicion for CSF infection relatively low, but I believe it needs to be ruled out. 2. Likely malignancy. The patient with suspected metastatic breast cancer. Noted on exam previously. Cancer markers elevated. Vertebral and left rib lytic lesions noted. Workup for paraneoplastic disease causing encephalopathy as above. Other workup likely to be done as an outpatient once her other issues are improved. 3. Coagulopathy, likely due to liver disease. Some improvement with lactulose, and ammonia is down some, but remains quite confused. No recent bowel movements so we will increase lactulose and monitor. CT showed hepatomegaly, but no obvious metastatic disease to the liver, so she may have nonalcoholic fatty liver disease leading to cirrhosis and liver failure versus occult malignancy. 4. Hypercalcemia, likely malignant, now improved. Continue to monitor. 5. Acute kidney injury. Patient with acute kidney injury on presentation, which improved, but now worsening again. The patient somewhat poor p.o. intake. Likely dehydrated. We will give IV fluids and monitor. 6. Morbid obesity complicating patient's medical issues, but stable. 7. Pneumonia and UTI. The patient is status post course of treatment for these, and these have since resolved at this point. 8. Diabetes. Overall reasonable control on current regimen. Continue sliding scale insulin. Monitor glucoses. 9. Deep vein thrombosis prophylaxis. SCD's.
[2018-12-10] MEDS ORDERED: KAYEXALATE PO ONE (14:54)
--- NOTE | 2018-12-10 15:07 | PROGRESS NOTE ---
DATE: 12/10/2018 SUBJECTIVE: No major overnight events. The primary has ordered FFP to try and reverse her coagulopathy in preparation for lumbar puncture. The patient's mother, friend and sister are all present in the room today. Afebrile, blood pressure 129/71, pulse 107. Ms. Bragg sitting up on the side of the bed eating lunch. She has chocolate pudding all over her hands, face and clothing. She is awake, alert, reasonably attentive but she is still very much confused. She wants to go to the store and get strawberries. She does not answer all of my questions coherently though she does answer some. It seems she is easily distracted still. When I talk with her family she is definitely listening and comments in such a way that indicates this. Her pupils are equal. Gaze is conjugate. Ocular movements are full at least in the horizontal planes. Face is symmetric with equal activation. No dysarthria. No definite language disturbance. She is moving all of her extremities equally without obvious focal deficit. White count normal, platelets 107,000. INR of 1.88 with PT of 23 today, sodium of 131, BUN 43, creatinine 2.1, ammonia 61 which is actually improved compared to 2 days ago where it was 104, calcium is normal, AST 154, ALT 53 trending up. ASSESSMENT AND PLAN: Global encephalopathy, uncertain etiology. She does have some metabolic derangements which could be the etiology or at least certainly contributing. Given the high concern of cancer recurrence however we need to obtain spinal fluid to evaluate for cancerous cells, paraneoplastic [employer]PUT[employer] PRO[employer] process and again I would also obtain fungal culture and HSV. I would hydrate the patient in preparation for lumbar puncture. Agree with reversing the coagulopathy with FFP as you are doing. Ideally LP would be done with fluoroscopic guidance and I have spoken with radiology about this. She would need a large volume tap with initial tests as outlined in my prior note. cc: Elisabeth Slaughter MD MTDD
[2018-12-10 17:42] LABS: INR 1.75; PROTIME 21.8 Seconds (11.0-16.0)
[2018-12-10] MEDS ORDERED: VITAMIN K 10 MG in NS 50 ML IV ONE (18:55)
[2018-12-10] MEDS: PROTONIX PO SCH (23:43)
[2018-12-11] MEDS: DUONEB (A & A) INH SCH ×6 (00:12→23:11)
[2018-12-11] MEDS: XOPENEX NEB INH SCH (00:12)
[2018-12-11] MEDS: HALDOL IV PRN ×3 (00:19→14:41)
[2018-12-11] MEDS ORDERED: LASIX IV ONE (01:23)
[2018-12-11] MEDS: NS 1,000 ML IV SCH ×2 (05:39→14:44)
[2018-12-11 07:49] LABS: INR 1.61; PROTIME 20.4 Seconds (11.0-16.0)
[2018-12-11] MEDS: ADVAIR 250/50 DISKUS INH SCH ×2 (07:55→19:21)
[2018-12-11 08:05] LABS: ALB/GLOB RATIO 0.6; ALBUMIN 2.7 g/dL (3.5-5.0); CALCIUM 8.8 mg/dL (8.8-10.2); CREATININE 2.5 mg/dL (0.5-0.9); POTASSIUM 4.4 mmol/L (3.5-5.1); TOTAL BILIRUBIN 2.46 mg/dL (0.20-1.00); TOTAL PROTEIN 6.9 g/dL (6.3-8.3)
--- NOTE | 2018-12-11 08:25 | HEMO/ONC PROGRESS NOTE ---
DATE: 12/10/2018 CHIEF COMPLAINT: Lytic lesions to fourth rib and vertebrae. SUBJECTIVE: The patient was not seen today. We have been consulted secondary to hypercalcemia and fourth rib and vertebrae lytic lesions. We consulted interventional radiology for CT-guided biopsy of fourth rib lesion; however, the patient's persistent encephalopathy prohibits biopsy at this time. We will continue to follow and, when biopsy is obtainable, we will proceed and develop treatment plan thereafter with the patient and the patient's family. The above reflects the plan of Dr. Nancy Caldwell. Dictated by ARPAN Donahue for Nancy Caldwell MD cc: ARPAN Donahue MD
--- NOTE | 2018-12-11 08:28 | EEG REPORT ---
DATE: 12/05/2018 REFERRING PHYSICIAN: Jordan Esteves III, MD. DIRECTOR OF RECRUITING: Rose Salinas. BACKGROUND INFORMATION/TECHNIQUE: This is a digitally recorded routine EEG with video. HISTORY: A 58-year-old female with persistent altered mental status. EEG is ordered to detect evidence of seizures. EEG FINDINGS: A posterior dominant alpha rhythm is not seen. The background consists of theta slowing with admixed faster frequencies. Rare diffuse broad-based triphasic waves are seen during the study. No definite persistent focal slowing. No definite epileptiform discharges. No seizures. Hyperventilation is not performed. Photic stimulation does not alter the record. The patient becomes drowsy but stage II sleep is not seen. EKG demonstrates regular R-R intervals. IMPRESSION/CLINICAL CORRELATION: Abnormal routine EEG due to mild generalized slowing with rare triphasic waves, indicative of a mild nonspecific encephalopathy. No epileptiform discharges or seizures are seen on the current study. This does not rule out an underlying seizure disorder. Generalized slowing is a nonspecific finding that can be seen in processes that diffusely affect the cerebrum, including toxic, metabolic, pharmacologic, post hypoxic, and infectious etiologies, amongst others. Triphasic waves are also a nonspecific finding seen with encephalopathy, most often in the setting of hepatic or renal derangements. cc: MD Jordan Case III, MD [facility]ITAL[facility]
[2018-12-11] MEDS ORDERED: ATIVAN IV PRN (09:18)
[2018-12-11] MEDS: LEVAQUIN PO SCH (10:36)
[2018-12-11] MEDS: CENTRUM SILVER PO SCH (10:36)
[2018-12-11] MEDS: XIFAXAN PO SCH ×2 (10:36→22:08)
--- NOTE | 2018-12-11 10:46 | PROGRESS NOTE ---
DATE: 12/11/2018 OBJECTIVE: Ms. Bragg is awake and alert today. She seems more consistently attentive today. I observed her getting up from bed with walker with physical therapy assistance. Her blood clotting factors are a little bit improved today. Liver enzymes are mildly elevated. Mother reports patient was much improved through the day yesterday, even "her normal self" at times, and then she had some agitation overnight. Mother reports patient's "father had bipolar" and mother has wondered in years past if the patient may have a similar problem. ASSESSMENT AND PLAN: I do not have any new suggestion from Neurology standpoint. Dr. Slaughter and attending team have had discussions and plans are made for radiology-assisted LP when clotting factors are better corrected. Further plans will depend on CSF report. Thanks for asking Neurology to see Ms. Bragg. cc: MD FRANKIE Hanson III
[2018-12-11] MEDS: LACTULOSE PO SCH ×3 (10:47→22:07)
--- NOTE | 2018-12-11 13:18 | PROGRESS NOTE ---
DATE: 12/11/2018 INTERVAL HISTORY: The patient remains awake, alert, and largely cooperative but extremely confused. Oriented to person at best. Responses are generally in complete sentences, but mostly nonsensical. No other acute events overnight. No signs or symptoms of bleeding. REVIEW OF SYSTEMS: Unable to obtain secondary to patient's mental status. LABORATORY DATA: INR 1.6. Sodium 137, potassium 4.4, BUN 50, creatinine 2.5, glucose 128, total bilirubin 2.46, AST 115, ALT 44, alkaline phosphatase 181. VITALS: Temperature maximum 98.4 degrees, pulse 109, respirations 18, blood pressure 109/54, O2 saturation 100% on room air. PHYSICAL EXAMINATION: General: No acute distress. Obese. Vitals: As above. HEENT: Normocephalic, atraumatic. Moist mucous membranes. Neck: No cervical adenopathy. Cardiovascular: Remains minimally tachycardic, but regular. No murmurs noted. Pulmonary: Clear to auscultation within the limits of body habitus. No wheezing, rales, or rhonchi noted. Abdomen: Soft, nontender, nondistended. Bowel sounds positive. Extremities: Peripheral pulses decreased but intact, 3+ edema bilaterally unchanged. Neurologic: Cranial nerves grossly intact. No focal deficits identified. Psychiatric: Awake and quite alert, but disoriented. Speech largely nonsensical, but individual words are clear. Normal mood. ASSESSMENT AND PLAN: 1. Metabolic encephalopathy: Originally thought to be due to patient's liver dysfunction, but ammonia is better, and patient is much more awake and alert for the last couple days. I suspect that there is another etiology going on, possibly paraneoplastic syndrome. Attempted to get patient set up for LP. INR remains somewhat elevated, but significantly improved. We will give additional FFP and get LP when possible. Discussed this with Dr. Slaughter . 2. Likely malignancy. Patient with strongly suspected breast cancer. Noted on exam previously. Cancer markers elevated. Vertebral and left rib lytic lesions noted. Workup for paraneoplastic disease causing encephalopathy and confusion as above. Other workup will likely be done as an inpatient once her other issues are improved. 3. Acute kidney injury. The patient with ZAHEER on presentation, which improved, but worsened again over the last couple days. Increased intravenous fluids yesterday, but creatinine is still trending up. We will obtain urine studies and a kidney ultrasound. If kidney function continues to worsen, we will consider Nephrology consult. 4. Coagulopathy, suspected due to liver disease. Improving with FFP, but INR remains somewhat elevated. Further, we will give further FFP today and monitor. 5. Likely early cirrhosis. Patient with hepatomegaly on CT. No obvious metastatic disease. Suspect nonalcoholic fatty liver disease related to her obesity and early cirrhosis. 6. Hypercalcemia, likely malignant, now improved. Continue to monitor. 7. Morbid obesity, stable, but a complicating factor in her multiple medical issues. 8. Pneumonia and urinary tract infection (UTI) status post antibiotics for these, resolved. 9. Diabetes. Overall controlled and remains reasonable on current regimen. Continue to monitor. 10. Deep vein thrombosis (DVT) prophylaxis. [facility].
--- NOTE | 2018-12-11 14:31 | Diag Imaging Result Doc PS360 ---
EXAM: US RENAL 2 (RETROPER) COMPLETE 12/11/2018 HISTORY: primo/arf TECHNIQUE: Renal ultrasound COMMENT: There is a small amount of fluid in the Morison's pouch. There is no evidence of hydronephrosis or mass on the right. The urinary bladder is not distended. The right kidney is 10.7 x 5 x 4.7 cm. The left kidney is obscured. IMPRESSION: Suboptimal study with nonvisualization of the left kidney. Ascites. No evidence of obstructive uropathy on the right. Electronically signed by Rajeev Mcgee 12/11/2018 2:29 PM
[2018-12-11 18:54] LABS: URINE SOURCE CATH
[2018-12-11 18:58] LABS: BILIRUBIN URINE SMALL (NEGATIVE); BLOOD URINE SMALL (NEGATIVE); COLOR YELLOW; GLUCOSE URINE NEGATIVE (NEGATIVE); KETONE URINE NEGATIVE (NEGATIVE); LEUKOCYTES URINE TRACE (NEGATIVE); NITRITE URINE NEGATIVE (NEGATIVE); PROTEIN URINE 50 mg/dL (NEGATIVE); SP GRAVITY URINE 1.017; TURBIDITY URINE TURBID (CLEAR); UROBILINOGEN URINE 3 mg/dL (NORMAL)
[2018-12-11 19:11] LABS: UR CREAT RANDOM 282.9 mg/dL (11-20); UR SODIUM < 10 mmoll
[2018-12-11 19:19] LABS: UR EPITHELIAL CELLS >10 /HPF (<10); URINE BACTERIA NEGATIVE /HPF; URINE RBC <10 /HPF (<10)
[2018-12-11 19:31] LABS: URINE CASTS GRANULAR PRESENT; URINE YEAST NONE SEEN
[2018-12-11 19:32] LABS: URINE CRYSTALS NONE SEEN; URINE SMALL ROUND CELLS TRANS PRESENT
[2018-12-11] MEDS: PROTONIX PO SCH (22:08)
[2018-12-11 22:10] LABS: ALLEN TEST YES; BE -6.1 mmoll (-3.0-3.0); BLOOD TYPE ARTERIAL; HCO3-(ACT) 20.2 mmoll (20.0-26.0); METHB 1.4 % (0.0-1.5); O2HB 95.2 % (95.0-99.0); PCO2(98.6) 28 mmHg (35-45); PO2(98.6) 84 mmHg (60-100); SAMPLE BLOOD; SAO2 98.6 % (95.0-100.0); THB 8.1 g/dL (11.5-17.4); pH(98.6) 7.41 (7.35-7.45)
[2018-12-11 22:11] LABS: MODALITY CANNULA
[2018-12-12] MEDS: DUONEB (A & A) INH SCH ×5 (07:35→23:00)
[2018-12-12] MEDS: ADVAIR 250/50 DISKUS INH SCH ×2 (07:38→19:47)
[2018-12-12] MEDS ORDERED: ATIVAN IV PRN (08:53)
[2018-12-12] MEDS ORDERED: SEROQUEL PO PRN (08:54)
[2018-12-12] MEDS: XIFAXAN PO SCH ×2 (09:26→20:06)
[2018-12-12] MEDS: CENTRUM SILVER PO SCH (09:26)
[2018-12-12] MEDS: LACTULOSE PO SCH ×3 (09:28→17:45)
--- NOTE | 2018-12-12 09:30 | PROGRESS NOTE ---
DATE: 11/22/2018 Ms. Bragg does not report any new problems. She does not appear significantly changed neurologically. Attempts to correct her clotting problems are underway. I do not see any new lab reported today. Next step will be lumbar puncture when reasonable. Dr. Slaughter has provided orders for CSF evaluation. No new thoughts from Neurology today. cc: Jordan Esteves III, MD
[2018-12-12 09:32] LABS: ALB/GLOB RATIO 0.6; ALBUMIN 2.5 g/dL (3.5-5.0); CALCIUM 8.7 mg/dL (8.8-10.2); CREATININE 3.7 mg/dL (0.5-0.9); POTASSIUM 4.8 mmol/L (3.5-5.1); TOTAL BILIRUBIN 3.13 mg/dL (0.20-1.00); TOTAL PROTEIN 6.9 g/dL (6.3-8.3)
[2018-12-12] MEDS: ZOSYN 2.25 GM in NS 50 ML IV SCH ×3 (09:50→23:53)
[2018-12-12 09:56] LABS: INR 2.1; PROTIME 25.1 Seconds (11.0-16.0)
[2018-12-12 09:57] LABS: BASO# 0.02 X1000 (0.0-0.2); BASO% 0.1 % (0.0-0.8); HEMATOCRIT 25.8 % (37.0-47.0); HEMOGLOBIN 8.1 g/dL (12.0-16.0); IMM GRAN# 0.12 X1000 (0.0-0.04); IMM GRAN% 0.7 % (0.0-0.5); LYMPH# 1.06 X1000 (1.2-3.4); LYMPH% 6.6 % (20.5-51.1); MCHC 31.4 g/dL (33-37); MCV 95.6 FL (81-99); MONO# 2.15 X1000 (0.11-0.59); MONO% 13.4 % (1.7-9.3); MPV 10.4 FL (7.4-10.4); NEUT# 12.69 X1000 (1.4-6.5); NEUT% 79.2 % (42.2-75.2); PLT 105 X1000 (130-400); RDW 19.5 % (11.5-14.5); WBC 16.04 X1000 (4.8-10.8)
[2018-12-12] MEDS ORDERED: BLISTEX MEDICATED BERRY LIP BALM TOP PRN (11:20)
[2018-12-12] MEDS: LEVOPHED 8 MG in D5 1/2 NS 250 ML IV SCH (12:05)
[2018-12-12] MEDS: NS 250 ML IV SCH (12:25)
[2018-12-12] MEDS: HALDOL IV PRN (13:20)
[2018-12-12] MEDS: ATIVAN IV PRN (14:35)
--- NOTE | 2018-12-12 14:39 | NEPHROLOGY CONSULTATION ---
DATE: 12/12/2018 REASON FOR ADMISSION: Altered mental status with encephalopathy, REASON FOR CONSULT: Acute kidney injury with oliguria. HISTORY OF PRESENT ILLNESS: Ms. Bragg is a 58-year-old white female who had originally presented to [facility] Emergency Department for altered mental status. She is unable to give us a full review of systems during our evaluation. She keeps requesting for help. The patient has a history of renal failure, though she has no baseline creatinine for comparison during her hospitalization. In the workup in the ER, it was noted that she was consistent with acute renal failure. Denied nausea and vomiting. She did have current diarrhea. Denied abdominal pain. She had some bleeding from her hemorrhoids. Otherwise, no fever or chills. The patient was subsequently at that time admitted for acute renal failure with altered mental status. During her hospital stay, she has had a GI consult, a Neurology consult. The patient has had an EGD performed on 11/29 with findings of a small hiatal hernia. The patient has a history of breast cancer. She did have a breast ultrasound that showed no evidence of a malignancy, though she does have a history of breast cancer. She has an Oncology consult secondary to her anemia. She had a renal ultrasound showing suboptimal secondary to her size, nonvisualization of the left kidney. No evidence of obstructive uropathy on the right, measuring 10.7. The patient currently does remain confused with continued metabolic encephalopathy. The patient's INR was elevated at which time she has been given fresh frozen plasma. Dr. Slaughter did attempt an LP. It is noted through Oncology the patient now has lytic lesions to the 4th rib of her vertebra. She has had a history of hypercalcemia during her hospitalization. PAST MEDICAL HISTORY: Has been documented as diabetes type 2, non-insulin dependent, congestive heart failure with no coronary artery disease. She has chronic renal insufficiency. We do not know a baseline creatinine. The patient has a history of breast cancer. She has bipolar disorder, morbid obesity. Patient has had non-Hodgkin's lymphoma many years ago. She is status post chemotherapy. PAST SURGICAL HISTORY: She has had a left mastectomy. SOCIAL HISTORY: The patient is currently living with her mother. No tobacco, alcohol or illicit drug use. Has been documented on several consults. FAMILY HISTORY: Negative for stroke, kidney disease. Brother may have had a seizure following a car accident. No cancers in the family. ALLERGIES: Currently listed as no known drug allergies on the chart. HOME MEDICATIONS: Furosemide, letrozole, losartan/hydrochlorothiazide, metformin, omeprazole, Cymbalta and Detrol LA. REVIEW OF SYSTEMS: Unable to obtain per patient. Most information obtained from previous charting and previous admission. VITAL SIGNS: The patient's most recent vital signs: Patient's last blood pressure is 97/47, heart rate 118, respirations 24. Her temperature is 99. She is on 2 L nasal cannula. Last recorded saturation is 98%. She has had 2610 in. She has had 0 documented out. She appears to be 15 L positive in the last several days for a total over her entire hospital stay. Decreased urinary output. LABS: Most recent labs: Sodium is 139, potassium 4.8, chloride 104, CO2 15, BUN 60, creatinine 3.7, glucose is 112. Her anion gap is 20, calcium is 8.7, albumin is 2.5. White count 16.04, hemoglobin 8.1, hematocrit 25.8, with a platelet count of 105,000. She had a PT drawn this morning of 25.1 with an INR of 2.10. PHYSICAL EXAMINATION: General: This is a 58-year-old morbidly obese white female resting quietly in bed. Head of the bed is elevated. She is confused. She is requesting help, unable to determine anything further. She does have slight asterixis noted to her head and to her hands. Unable to hold arms up, but does attempt to follow commands. HEENT: Normocephalic, atraumatic. Conjunctiva is pale pink. She has ONRMAN. Neck: Supple. Trachea midline. Positive JVD. She also exhibits hepatojugular reflex. Cardiovascular: Regular rate and rhythm. She has a systolic murmur. Lungs: Clear to auscultation bilaterally. Equal breath sounds. She remains on O2 support. Abdomen: Large, round, soft. Quiet bowel sounds noted. Genitourinary: Not inspected. Orellana catheter is in place. There is no urine out since 6 a.m. Extremities: Exhibit 1+ lower extremity edema. No clubbing or cyanosis. Neurologic: As mentioned above. ASSESSMENT AND PLAN: 1. Acute kidney injury. This may possibly be related to either ATN, volume contraction or hepatorenal. Due to her drop in her urinary output, we will request that she be placed in ICU and started on a norepinephrine drip. We will obtain blood cultures and start her on Zosyn renally dosed. Renal ultrasound to be determined with urine electrolytes ordered. 2. Electrolytes and acid-base balance. The patient is acidotic. She has an anion gap of 20. This may be related to #1. We will monitor. 3. Anemia. Patient's hemoglobin is stable at 8.1. 4. Sepsis. Patient has been treated on sepsis protocol. We will check blood cultures. We will start Zosyn to be renally dosed. 5. Elevated INR. The patient has received several units of fresh frozen plasma. This is to be followed by the primary care team and Hematology. I would like to thank you for allowing us to follow with this patient. Dictated by ARPAN Gandhi for Jay Rahman MD Face to face encounter, data reviewed, discussed with Osmin Alegre on 12/13/18. I agree with the above assessment and plan of care. cc: ARPAN Gandhi MD [facility]
--- NOTE | 2018-12-12 15:40 | PROGRESS NOTE ---
DATE: 12/12/2018 INTERVAL HISTORY: Patient with slightly worsened confusion. Urine output significantly decreased. Discussed with Nephrology and we are moving patient to the ICU to start Levophed to maximize renal perfusion. No other acute events overnight. No new complaints, although patient's verbal responses are largely nonsensical. REVIEW OF SYSTEMS: Unable to obtain secondary to patient's mental status. LABS: WBC is 16.0, hemoglobin 8.1, hematocrit 25.8, platelets 105,000. INR 2.1. Sodium 139, potassium 4.8, bicarbonate 15, creatinine 3.7, BUN 60, glucose 145, total bilirubin 3.13, AST 94, ALT 38, alkaline phosphatase 50. VITALS: T-max 99.0, pulse 110, respiratory rate 16, blood pressure 84/66, O2 sat 99% on 2 L by nasal cannula. PHYSICAL EXAMINATION: General: Slightly anxious appearing, but no acute distress. Obese. Vital Signs: As above. HEENT: Normocephalic, atraumatic. No cervical adenopathy. Cardiovascular: Still slightly tachycardic, but regular. No murmurs noted. Pulmonary: Clear to auscultation within limits of body habitus. No wheezing, rales or rhonchi noted. Abdomen: Soft, nontender, nondistended. Bowel sounds positive. Extremities: Peripheral pulses decreased but intact. Still with 3+ edema in the bilateral lower extremities, but now extending up into the lower abdomen. Neurologic: Cranial nerves grossly intact. No focal deficits identified, although patient is less cooperative today. Limited exam somewhat. Psychiatric: Awake, alert, but completely disoriented. Speech remains largely nonsensical. ASSESSMENT AND PLAN: 1. Metabolic encephalopathy, liver dysfunction may be contributing, but concern for paraneoplastic syndrome. Attempting to get LP, but has been somewhat problematic. INR was improved yesterday, but patient too agitated to proceed. There were plans for repeat attempt with additional sedation today, but INR is significantly worsened again today. We will plan on getting LP whenever possible. 2. Likely malignancy. Patient with strongly suspected breast cancer. Lump noted on exam. Cancer markers elevated. Vertebral and left rib lytic lesions noted. Workup for paraneoplastic disease causing encephalopathy and confusion as above. 3. Acute kidney injury. Patient with ZAHEER on presentation which improved, but worsened again. Did not respond to increased IV fluids. Eventually fluids had to be decreased because of worsening edema. Creatinine still trending up. Kidney ultrasound somewhat limited by body habitus, but without any clear evidence of obstructive uropathy. Nephrology consult is on board. Moving to ICU to start Levophed, as above. Continue to monitor urine output closely. 4. Coagulopathy, suspected due to liver disease. Improved with FFP initially, but INR significantly worsened again today. We will give additional FFP and monitor. 5. Likely cirrhosis. Patient with hepatomegaly on CT. No obvious metastatic disease. Suspect nonalcoholic fatty liver disease, progressing to cirrhosis with decompensation. 6. Hypercalcemia, improved. Continue to monitor. 7. Morbid obesity, stable, but complicating factor in the above. 8. Pneumonia and urinary tract infection. The patient is status post antibiotics for these and appear to be resolved. Still no clear evidence of infection, but given worsening clinical status and increasing leukocytosis, started patient on Zosyn after discussion with Nephrology. Repeat blood cultures. No growth to date. 9. Diabetes. Overall control remains reasonable. Continue to monitor. 10. DVT prophylaxis, SCDs.
[2018-12-12] MEDS: PROTONIX PO SCH (20:05)
[2018-12-13] MEDS: NS 250 ML IV SCH ×3 (00:50→23:10)
[2018-12-13] MEDS: LEVOPHED 8 MG in D5 1/2 NS 250 ML IV SCH ×3 (05:48→19:19)
[2018-12-13 06:19] LABS: BASO# 0.02 X1000 (0.0-0.2); BASO% 0.1 % (0.0-0.8); HEMATOCRIT 24.8 % (37.0-47.0); HEMOGLOBIN 7.6 g/dL (12.0-16.0); IMM GRAN# 0.04 X1000 (0.0-0.04); IMM GRAN% 0.2 % (0.0-0.5); LYMPH# 1.24 X1000 (1.2-3.4); LYMPH% 7.6 % (20.5-51.1); MCH 29.5 PG (27-31); MCHC 30.6 g/dL (33-37); MCV 96.1 FL (81-99); MONO# 2.85 X1000 (0.11-0.59); MONO% 17.5 % (1.7-9.3); MPV 10.5 FL (7.4-10.4); NEUT# 12.11 X1000 (1.4-6.5); NEUT% 74.6 % (42.2-75.2); PLT 115 X1000 (130-400); RBC 2.58 XMIL (4.2-5.4); RDW 19.5 % (11.5-14.5); WBC 16.26 X1000 (4.8-10.8)
[2018-12-13 06:22] LABS: INR 2.45; PROTIME 28.3 Seconds (11.0-16.0)
[2018-12-13 06:38] LABS: ALB/GLOB RATIO 0.7; ALBUMIN 2.7 g/dL (3.5-5.0); CALCIUM 8.3 mg/dL (8.8-10.2); CREATININE 4.7 mg/dL (0.5-0.9); POTASSIUM 4.6 mmol/L (3.5-5.1); TOTAL BILIRUBIN 3.52 mg/dL (0.20-1.00); TOTAL PROTEIN 6.8 g/dL (6.3-8.3)
[2018-12-13 07:27] LABS: LYMPHS 6 % (21-51); MONO 10 % (1-9); OVALOCYTES OCCASIONAL; SEGS 84 % (42-75)
[2018-12-13] MEDS: ADVAIR 250/50 DISKUS INH SCH ×2 (07:31→19:20)
[2018-12-13] MEDS: DUONEB (A & A) INH SCH ×5 (07:32→23:17)
[2018-12-13] MEDS ORDERED: NS 2,000 ML MISC PRN (08:03)
[2018-12-13] MEDS: ZOSYN 2.25 GM in NS 50 ML IV SCH ×3 (08:05→23:07)
[2018-12-13] MEDS ORDERED: NEO-SYNEPHRINE 50 MG in NS 250 ML IV SCH (09:45)
--- NOTE | 2018-12-13 10:36 | Diag Imaging Result Doc PS360 ---
EXAM: CHEST-PORTABLE 12/13/2018 HISTORY: NGT placement TECHNIQUE: AP portable at 1013 COMMENT: There is an NG tube with its tip in the stomach. The study is somewhat overexposed. IMPRESSION: NG tube in the stomach. Electronically signed by Rajeev Mcgee 12/13/2018 10:33 AM
--- NOTE | 2018-12-13 11:15 | PROGRESS NOTE ---
DATE: 12/13/2018 SUBJECTIVE: Ms. Bragg has moved to ICU. Her most recent INR is 2.45 and platelet count 115,000. BUN up to 67. OBJECTIVE: On exam, she continues awake, alert, and inconsistently attentive. She answered some questions appropriately,and answered others with nonsense answers. I do not find a focal neurologic deficit otherwise. She has good power in the limbs. Limb tone is symmetric. She did well on [id number] testing. She has full visual north. Extraocular movements are full. Neck remains supple. IMPRESSION: No definite new neurologic problem. Still hoping for CSF analysis to help clarify. No urgent suggestions. Thanks for asking Neurology to see Ms. Bragg. cc: MD FRANKIE Hanson III
[2018-12-13] MEDS: XIFAXAN PO SCH ×2 (11:26→20:00)
[2018-12-13] MEDS: LACTULOSE PO SCH ×3 (11:26→19:59)
[2018-12-13] MEDS: CENTRUM SILVER PO SCH (11:27)
--- NOTE | 2018-12-13 11:32 | Diag Imaging Result Doc PS360 ---
EXAM: CHEST-PORTABLE 12/13/2018 HISTORY: vs cath placement TECHNIQUE: AP portable at 1120 COMMENT: There is a double-lumen catheter in the right internal jugular with its tip in the superior vena cava. There is a Port-A-Cath on the right as well as a PICC line. There is an NG tube which passes below the diaphragm. There is some apparent atelectasis or pneumonia over the right hemidiaphragm. The inspiration is generally suboptimal. There is no evidence of pneumothorax. IMPRESSION: Right basilar atelectasis. Electronically signed by Rajeev Mcgee 12/13/2018 11:30 AM
--- NOTE | 2018-12-13 12:29 | OPERATIVE NOTE ---
PROCEDURE DATE: 12/13/2018 PROCEDURES PERFORMED: Right internal jugular vein Vas-Cath placement with ultrasound guidance. SURGEON: Liu Myers MD. PREOPERATIVE DIAGNOSIS: Acute renal failure on top of chronic renal insufficiency. POSTOPERATIVE DIAGNOSIS: Acute renal failure on top of chronic renal insufficiency. DESCRIPTION OF PROCEDURE: I have been asked to place a Vas-Cath for dialysis for Ms. Bragg. Consent was obtained from her family as she is unable to make a conscious well informed decision. We ultrasounded her right internal jugular vein, and found it to be dilated and compressible so we left her flat. We prepped the right side of her neck and draped in a sterile fashion. I gowned and gloved. I then imaged the vein and anesthetized the skin. I made a small stab incision and accessed the internal jugular vein and passed the guidewire. We then dilated the tract sequentially and passed the Trialysis catheter to the extent that it would go. Blood came back in each lumen. We then flushed each lumen with saline, secured the flange to the skin with a 3-0 nylon. Chest x-ray was ordered. Sterile OpSite dressing was applied. She tolerated it well. A chest x-ray was ordered. cc: Liu Myers MD
[2018-12-13] MEDS ORDERED: VANCOMYCIN IV PER PHARMACY MISC SCH (14:30)
[2018-12-13] MEDS: ATIVAN IV PRN (14:39)
[2018-12-13] MEDS ORDERED: VANCOMYCIN 2,000 MG in NS 500 ML IV SCH (15:00)
--- NOTE | 2018-12-13 15:00 | PROGRESS NOTE ---
DATE: 12/13/2018 INTERVAL HISTORY: The patient remains in the ICU. He remains on Levophed with some increase in her pressor requirements. Still with little to no urine output. Vas-Cath is being placed for likely dialysis later today. Worsening encephalopathy today. Patient now largely nonverbal and responsive only to noxious stimuli. REVIEW OF SYSTEMS: Unable to obtain secondary to patient's mental status. LABORATORY: WBC 16.2, hemoglobin 7.6, hematocrit 24.8, and platelets 115,000. INR 2.45. Sodium 136, potassium 4.6, bicarb 16, BUN 67, creatinine 4.7, glucose 91, total bilirubin 3.5, AST 84, ALT 35, and alkaline phosphatase 123. IMAGING: Initial chest x-ray, NG tube in stomach. No new acute pathology. Second chest x-ray double-lumen catheter in right IJ in position. Port-A-Cath and PICC line also on the right side. Nasogastric tube in place. Atelectasis versus infiltrate on right hemidiaphragm. VITALS: T-max 99.1, respirations 15, blood pressure 120/79, and O2 saturation 98% on 2 L by nasal cannula. PHYSICAL EXAMINATION: General: No acute distress. Obese. Vital Signs: As above. HEENT: Normocephalic, atraumatic. No cervical adenopathy. Cardiovascular: Slightly tachycardic but regular. Left upper sternal border murmur noted. Pulmonary: Remains clear to auscultation within the limits of body habitus. No wheezing, rales, or rhonchi noted. Abdomen: Soft, nontender. Lower abdominal anasarca noted. Extremities: Peripheral pulses decreased, but intact and 3+ edema in bilateral lower extremities. Neurologic: Limited by patient mental status. Moving all extremities spontaneously occasionally. No facial asymmetry. Pupils equal, round, and reactive to light. Psychiatric: The patient is encephalopathic, moving all extremities and head. Will occasionally track with eyes, but not responding to commands, largely nonverbal. ASSESSMENT AND PLAN: 1. Metabolic encephalopathy. Liver dysfunction may be contributing, but high concern for paraneoplastic syndrome. I have been attempting to get ALT, but had great difficulty controlling patient's coagulopathy long enough to make this happen. The patient has received a total of 11 units of FFP, but INR continuing to trend up. Would still like to get a LP if this becomes possible. 2. Acute kidney injury. Patient with ZAHEER on presentation which improved, but worsened again, and at that time did not respond to IV fluids. Nephrology was consulted and concern for ATN versus hepatorenal syndrome. She was moved to the ICU, placed on pressors to try to maximize renal perfusion. Despite this, creatinine has continued to worsen and urine output has been near 0. Obtaining Vas-Cath today for likely dialysis. Continue with Levophed. 3. Possible septic shock. The patient initially moved to the ICU to start Levophed to maximize renal perfusion, although blood pressure was low normal. However, last 24 hours, patient has had worsening of her blood pressure and is actually requiring Levophed to maintain reasonable pressures. No obvious source of infection, but have to assume septic shock. The patient was started on Zosyn empirically yesterday. Given increasing leukocytosis and worsening hypotension will empirically add vancomycin despite a lack of clear source of infection. 4. Malignancy. Patient with likely breast cancer. Lump noted on exam. Cancer markers elevated. Vertebral and left rib lytic lesions noted. Patient with history of both breast cancer and lymphoma previously. Workup for malignancy and paraneoplastic disease pending improvement in acute illness. 5. Coagulopathy, suspected due to liver disease. Improved with FFP initially, but INR has been trending up significantly over the last 2 days. Hematology has been following and will ask for their opinion on additional steps. 6. Likely cirrhosis. Patient with hepatomegaly on CT. No obvious metastatic disease in the liver. Suspect nonalcoholic fatty liver disease, progressing to cirrhosis with acute decompensation. Continuing lactulose and rifaximin to minimize the impact on her mental status. 7. Hypercalcemia, thought to be likely related to malignancy, but now improved. Continue to monitor. 8. Morbid obesity, stable, but complicating her multiple other issues. 9. Pneumonia and UTI. Patient with pneumonia and UTI on admission. Finished course of antibiotics for these. No clear new infection but treating with empiric antibiotics as above. Repeat blood cultures remain negative so far. 10. Diabetes control remains good. Continue current regimen. 11. Deep vein thrombosis prophylaxis SCD's. 12. Disposition. The patient is critically ill with possible septic shock, liver failure, kidney failure, underlying malignancy and worsening coagulopathy. Prognosis guarded. Discussed current situation with family.
[2018-12-13] MEDS ORDERED: VANCOMYCIN 1 GM/NS 1 GM/250 ML IVPB IV SCH (17:00)
--- NOTE | 2018-12-13 18:12 | NEPHROLOGY PROGRESS NOTE ---
DATE: 12/13/2018 SUBJECTIVE: She is really unresponsive today, groaning. OBJECTIVE: Blood pressure 93/73, heart rate 105, respirations 20, afebrile. Intake 1.6 L, output 5 mL. On physical exam, no acute distress. Unresponsive. Skin is warm and dry. Neck veins are not appreciated. Heart is regular. Lungs are equal with wheezes and prolonged expiration. Abdomen is soft. Decreased bowel sounds. Extremities have 3+ edema. No clubbing or cyanosis. IMPRESSION AND PLAN: Acute kidney injury. Oliguric to anuric. No recovery and unlikely to recover in the short term. I have asked Dr. Myers to place a dialysis catheter, and we will began sustained low-efficiency dialysis (SLED) today using a 4 potassium bath and a goal of 4-6 L ultrafiltration, as her blood pressure allows. cc: Jay Rahman MD
[2018-12-13] MEDS: VANCOMYCIN 1 GM/NS 1 GM/250 ML IVPB IV ONE ×2 (19:19→20:00)
[2018-12-13] MEDS: PROTONIX PO SCH (20:00)
[2018-12-13] MEDS ORDERED: D50W SYRINGE IV ONE ×3 (20:18→23:19)
[2018-12-13] MEDS: D50W SYRINGE ONE ×2 (20:35→20:51)
[2018-12-13] MEDS: D50W SYRINGE IV ONE ×2 (20:36→21:47)
[2018-12-14] MEDS: LEVOPHED 8 MG in D5 1/2 NS 250 ML IV SCH (00:25)
[2018-12-14 06:04] LABS: ALLEN TEST YES; BE -17.2 mmoll (-3.0-3.0); BLOOD TYPE ARTERIAL; HCO3-(ACT) 11.5 mmoll (20.0-26.0); METHB 1.1 % (0.0-1.5); O2(CT) 11.4 mL/dL (15.0-23.0); O2HB 93.5 % (95.0-99.0); PCO2(98.6) 27 mmHg (35-45); PO2(98.6) 75 mmHg (60-100); SAMPLE BLOOD; SAO2 96.6 % (95.0-100.0); THB 8.6 g/dL (11.5-17.4)
[2018-12-14 06:05] LABS: MODALITY CANNULA; pH(98.6) 7.17 (7.35-7.45)
[2018-12-14 06:35] LABS: BASO# 0.01 X1000 (0.0-0.2); BASO% 0.1 % (0.0-0.8); EOS# 0.02 X1000 (0.0-0.7); EOS% 0.1 % (0.0-10.0); HEMOGLOBIN 7.9 g/dL (12.0-16.0); IMM GRAN# 0.07 X1000 (0.0-0.04); IMM GRAN% 0.5 % (0.0-0.5); LYMPH# 0.79 X1000 (1.2-3.4); LYMPH% 5.9 % (20.5-51.1); MCH 28.9 PG (27-31); MCHC 29.3 g/dL (33-37); MCV 98.9 FL (81-99); MPV 10.3 FL (7.4-10.4); NEUT# 9.65 X1000 (1.4-6.5); NEUT% 72.4 % (42.2-75.2); PLT 111 X1000 (130-400); RBC 2.73 XMIL (4.2-5.4); RDW 19.5 % (11.5-14.5); WBC 13.34 X1000 (4.8-10.8)
[2018-12-14 06:42] LABS: INR 4.05; PROTIME 42.1 Seconds (11.0-16.0)
[2018-12-14 06:45] LABS: ALB/GLOB RATIO 0.6; ALBUMIN 2.5 g/dL (3.5-5.0); CALCIUM 8.4 mg/dL (8.8-10.2); CREATININE 3.4 mg/dL (0.5-0.9); POTASSIUM 4.9 mmol/L (3.5-5.1); TOTAL BILIRUBIN 4.14 mg/dL (0.20-1.00); TOTAL PROTEIN 6.5 g/dL (6.3-8.3)
[2018-12-14] MEDS ORDERED: D50W SYRINGE IV ONE (06:52)
[2018-12-14 07:19] LABS: LYMPHS 6 % (21-51); MONO 19 % (1-9); SEGS 75 % (42-75)
[2018-12-14] MEDS ORDERED: SODIUM BICARBONATE 8.4% 150 MEQ in D5W 1,000 ML IV SCH (07:30)
[2018-12-14] MEDS: ADVAIR 250/50 DISKUS INH SCH (07:30)
[2018-12-14] MEDS: DUONEB (A & A) INH SCH (07:30)
--- NOTE | 2018-12-14 08:14 | Diag Imaging Result Doc PS360 ---
EXAM: CHEST-PORTABLE INDICATION: dyspnea TECHNIQUE: One view COMPARISON: 12/13/2018 FINDINGS: Support tubes and lines are in stable positions. Lung volumes remain very low. Mild atelectasis and/or infiltrate at the right lung base appears less dense than the previous study. No new consolidation is identified. Cardiac silhouette is stable. IMPRESSION: Mild atelectasis and/or infiltrate at the right lung base slightly less prominent than previously. Stable chest, otherwise. Electronically signed by Eric Holland 12/14/2018 8:12 AM
[2018-12-14] MEDS ORDERED: NS IV SCH (08:33)
[2018-12-14] MEDS ORDERED: MORPHINE IV SCH (08:33)
[2018-12-14] MEDS ORDERED: ATIVAN IV PRN (08:35)
[2018-12-14] MEDS ORDERED: NS 2,000 ML MISC PRN (09:08)
[2018-12-14 10:11] VITALS: BP 46/26
--- NOTE | 2018-12-15 03:43 | DISCHARGE SUMMARY ---
ADMISSION DATE: 11/19/2018 DISCHARGE DATE: 12/14/2018 CONSULTS: Neurology, GI, Oncology, Nephrology, Surgery. DISCHARGE DIAGNOSES: 1. Septic shock. 2. Cirrhosis. 3. Kidney failure. 4. Metabolic encephalopathy. 5. Metastatic cancer. 6. Morbid obesity. 7. Pneumonia. 8. Urinary tract infection. 9. Thrombocytopenia. 10. Severe lactic acidosis. 11. Diabetes mellitus. 12. Chronic kidney disease 3. 13. Hypercalcemia. HOSPITAL COURSE: The patient is a 58-year-old female with history of morbid obesity, type 2 diabetes with history of breast cancer and lymphoma both reportedly in remission at the time of admission. She presented initially with confusion. Initial workup showed hepatomegaly, elevated ammonia, and it was initially thought that the patient's encephalopathy was primarily related to liver disease and hepatic encephalopathy possibly exacerbated by infection as she was also shortly thereafter found to have pneumonia and urinary tract infection. She was placed on empiric antibiotics and treated with lactulose and rifaximin with some initial improvement but continued to have encephalopathy. Evaluation also showed a breast mass as well as lytic lesions to the 4th rib and T4 vertebrae. Neurology was consulted and given the findings concerning for recurrent malignancy they were worried about a paraneoplastic process involving the spinal fluid. Was not thought to have a malignancy directly involving the brain as MRI showed no intracranial disease. Neurology recommended LP for paraneoplastic studies but patient's coagulopathy associated with her liver failure was an issue. FFP was given and she did have some improvement in her coagulopathy initially, but before LP could be performed her coagulopathy again worsened and was not responsive to FFP or vitamin K at that point. The patient's initial infection was successfully treated and she was taken off of antibiotics, but later patient began having worsening acidosis and decreasing blood pressure. Evaluation at that point did not show a clear source of infection, but she was started on vancomycin and Zosyn empirically. Despite this, she continued to have a clinical decline. She was moved to the ICU and started on pressors, initially Levophed and later phenylephrine was added as well. The coagulopathy continued to worsen. Bilirubin continued to rise and patient's pressor requirements continued to increase. During this time she also developed acute kidney injury and became anuric. Dialysis was attempted. While her electrolytes were improved and her creatinine was reduced, it did not make any significant impact on her acidosis and her kidney function never recovered. As patient's pressor requirements continued to increase and she was eventually maxed on 2 pressors with complete kidney failure, worsening fulminant liver failure and worsening encephalopathy with decreased responsiveness, I discussed relatively poor prognosis and goals of care with her family. After extensive discussion, they elected to make her DNR and then proceeded to comfort care. She was placed on morphine drip for comfort and then pressors were withdrawn. Subsequently, patient passed a few hours later. Time of was 10:17 on 12/14/2018. DISCHARGE EXAMINATION: Patient . DISCHARGE DIET: Patient . DISCHARGE MEDICATIONS: None. Patient . FOLLOW-UP PLAN: Patient . We will release body to home whenever family is ready. TIME: Greater than 30 minutes spent treating patient and counseling patient's family. FRANKIE
[2018-12-17 13:19] LABS: PARANEOPLASTIC AUTOAB EVAL SEE COMMENTS
== END 2018-12-14 10:17 | disposition expired | DRG 682 ==
LOC: P.ED 16:28 → SUATTDRO 21:51 → P.MEDSURG 21:51 → 3N 11-26 17:28 → ICU 12-12 11:01
PROVIDERS: ATTEND Internal Medicine
CPT/HCPCS: 36430; 36569; 70450; 70551; 70553; 71010; 71020; 71045; 71046; 71260; 74177; 76642; 76700; 76770; 77056; 77066; 78306; 80048; 80053; 80069; 80074; 80076; 81001; 81050; 82103; 82140; 82306; 82310; 82330; 82378; 82390; 82397; 82550; 82570; 82607; 82728; 82746; 82805; 82947; 82948; 83036; 83516; 83519; 83520; 83540; 83550; 83605; 83735; 83970; 84100; 84132; 84155; 84156; 84165; 84166; 84295; 84300; 84439; 84443; 84484; 84540; 85014; 85018; 85025; 85610; 85730; 86038; 86039; 86140; 86160; 86235; 86255; 86256; 86300; 86334; 86850; 86900; 86901; 87040; 87077; 87088; 87186; 93005; 93306; 94640; 94761; 95816; 96360; 96361; 97110; 97116; 97163; 97166; 97530; 97535; 99285; A9270; A9503; A9579; C8929; C9113; G0204; J0630; J0692; J1630; J1940; J2060; J2270; J2370; J2543; J3370; J3430; J3487; J3489; J7030; J7040; J7050; P9017; Q2051; Q9957; Q9967; S0164; XXXXX